=== PATIENT | female | born 1935 | race Caucasian/White ===

== ENCOUNTER 2016-11-05 08:30 | Inpatient (IN) | payer MEDICARE, BC, MEDICAID ==
[~2016-11-05] VITALS: Ht 170.2 cm; Wt 90.9 kg
[2016-11-05 09:37] LABS: APPEARANCE HAZY (CLEAR); BACTERIA FEW /hpf (NONE SEEN); BILIRUBIN NEGATIVE (NEGATIVE); COLOR YELLOW (YELLOW); GLUCOSE NEGATIVE (NEGATIVE); KETONE NEGATIVE (NEGATIVE); LEUKOCYTE ESTERASE 1+ (NEGATIVE); NITRITE NEGATIVE (NEGATIVE); PROTEIN NEGATIVE (NEGATIVE); RED CELLS - URINE 0-5 /hpf (0-5); SPECIFIC GRAVITY 1.015 (1.005-1.020); UROBILINOGEN NORMAL (NORMAL); YEAST RARE /hpf (NONE SEEN)
[2016-11-05 09:41] LABS: HEMATOCRIT 42.3 % (36.0-48.0); HEMOGLOBIN 13.2 g/dL (12-16); LYMPHOCYTES 12.6 % (15-50); MCHC 31.2 g/dL (31.0-37.0); MCV 86.7 fL (80.0-100.0); MEAN PLATELET VOLUME 8.7 fL (7.4-10.4); NEUTROPHILS 76.7 % (40-80); PLATELET COUNT 222 10x3/uL (130-400); RBC 4.88 10x6/uL (4.00-5.40); RDW 16.3 % (11.5-14.5); WBC 5.1 10x3/uL (4.8-10.8)
[2016-11-05 09:58] LABS: ALBUMIN 3.6 g/dL (3.4-5.0); ALKALINE PHOSPHATASE 72 U/L (46-116); ALT (SGPT) 17 U/L (10-68); CALC OSMOLALITY 277 mosm/kg (275-300); CALCIUM 8.7 mg/dL (8.5-10.1); CARBON DIOXIDE 29.1 mmol/L (21.0-32.0); CHLORIDE - SERUM 102 mmol/L (98-107); CREATININE - SERUM 0.9 mg/dL (0.6-1.3); GLUCOSE 118 mg/dL (74-106); PROTEIN - SERUM 7.8 g/dL (6.4-8.2); SODIUM 139 mmol/L (136-145); UREA NITROGEN 9 mg/dL (7-18); eGFR NON AFRICAN AMERICAN 64 mL/min (90-120)
[2016-11-05 10:10] LABS: CREATINE KINASE 61 UL (21-215); PRO BNP 338 pg/mL (0-450); TROPONIN-I < 0.017 ng/mL (0.000-0.060)
--- NOTE | 2016-11-05 15:14 | NUR ---
PATIENT TO ROOM AT THIS TIME. ASSISTED PATIENT TO BED X 2. PATIENT STOOD UP AND PIVOTED TO GET TO THE OTHER BED. NO SKIN BREAKDOWN NOTED. IV INTACT. FAMILY AT BEDSIDE. CALL LIGHT WITHIN REACH.
[2016-11-05] MEDS ORDERED: BAYER CHEWABLE81 MG PO (16:09)
[2016-11-05] MEDS ORDERED: SYNTHROID125 MCG PO (16:09)
[2016-11-05] MEDS ORDERED: VALIUM5 MG PO (16:11)
[2016-11-05] MEDS ORDERED: PERCOCET 10/3251 TA1 PO (16:13)
[2016-11-05] MEDS ORDERED: VENTOLIN HFA18 GM INH (16:14)
[2016-11-05] MEDS ORDERED: GOLD BOND MEDI TOPICAL (16:15)
[2016-11-05] MEDS ORDERED: MIRALAX17 GM PO (16:15)
[2016-11-05] MEDS ORDERED: BUSPAR10 MG PO (16:16)
[2016-11-05] MEDS ORDERED: CIPRO500 MG PO (16:18)
[2016-11-05] MEDS ORDERED: AUGMENTIN 875-11 TAB PO (16:21)
[2016-11-05 17:27] VITALS: BP 163/71
--- NOTE | 2016-11-05 19:40 | NUR ---
PATIENT RECIEVED PAIN PILL AT THIS TIME. IV INTACT. NO COMPLAINTS. ASSISTED TO STAND UP AT BEDSIDE AND BACK TO BED. CALL LIGHT WITHIN REACH.
[2016-11-05 19:44] VITALS: Ht 170.2 cm; Wt 90.9 kg
[2016-11-05 20:00] VITALS: BP 128/72
[2016-11-05] MEDS ORDERED: CLARITIN 10 MG10 MG PO (21:35)
[2016-11-06] VITALS: BP 141/73
--- NOTE | 2016-11-06 03:56 | NUR ---
ASSISTED PT UP BEDSIDE COMMODE. BALANCE PROBLEMS. PT C/O CHRONIC LEFT LEG PAIN. HAVE GIVEN MORPHINE TWICE TONIGHT. OXYGEN @ 2.5 LITERS. WILL CONTINUE TO MONITOR.
[2016-11-06 04:00] VITALS: BP 133/77
--- NOTE | 2016-11-06 05:00 | NUR ---
IV DISLODGED. RESITED 22 G TO RIGHT FOREARM. GAVE PT PERCOCET FOR PAIN LEFT LEG PAIN. PT SITTING UP IN BED EATING SANDWICH AND DRINKING COFFEE.
[2016-11-06 06:37] LABS: BASOPHILS 0 % (0-2); EOSINOPHILS 0 % (0-7); HEMATOCRIT 41.1 % (36.0-48.0); HEMOGLOBIN 12.3 g/dL (12-16); IMMATURE GRANULOCYTES 0.3 % (0-5); LYMPHOCYTES 13.2 % (15-50); MCH 26.5 pg (26.0-34.0); MCHC 29.9 g/dL (31.0-37.0); MCV 88.6 fL (80.0-100.0); MEAN PLATELET VOLUME 9.7 fL (7.4-10.4); MONOCYTES 3.3 % (2-11); NEUTROPHILS 83.2 % (40-80); PLATELET COUNT 220 10x3/uL (130-400); RBC 4.64 10x6/uL (4.00-5.40); RDW 16.6 % (11.5-14.5)
[2016-11-06 06:50] LABS: ANION GAP 13.9 mmol/L (8-16); CALCIUM 8.8 mg/dL (8.5-10.1); CARBON DIOXIDE 25.5 mmol/L (21.0-32.0); CREATININE - SERUM 0.8 mg/dL (0.6-1.3); POTASSIUM - SERUM 4.4 mmol/L (3.5-5.1)
--- NOTE | 2016-11-06 07:00 | NUR ---
REPORT RECIEVED, ASSUMED CARE OF PT. NO COMPLAINTS AT THIS TIME. RESTING IN BED. BED IN LOWEST POSITION, SIDE RAILS UP X 2, CALL LIGHT WITHIN REACH.
[2016-11-06 07:17] VITALS: BP 120/63
[2016-11-06 11:02] VITALS: BP 133/70
--- NOTE | 2016-11-06 14:26 | HP ---
PATIENT: HENRIQUE CLAY MEDICAL RECORD: [id number] ACCOUNT: [id number] LOCATION:D.[id number] : 35 ADMISSION DATE: 11/05/16 HISTORY AND PHYSICAL EXAMINATION Admission History and Physical DATE OF ADMISSION: 11/05/2016 CHIEF COMPLAINT: Shortness of breath for days. HISTORY OF PRESENT ILLNESS: This is an 81-year-old white female, who was recently moved to [place] in the last month or 2. She lives at [facility] and she was brought to the ER with increased shortness of breath over several days. Denies fever or chills. She has had a little cough. She has a past history of nonsmall cell lung cancer and recently completed treatment for that in [place]. She has a history of chronic obstructive pulmonary disease. Chest x-ray done in the ER showed prominence with left elevated hemidiaphragm and patchy airspace opacities. CT of the chest was then done showing emphysematous changes with scarring bilaterally. There was an elevated left hemidiaphragm, possible fibrosis, neoplasm could not be excluded. She is admitted for further treatment of COPD exacerbation at this point. PAST MEDICAL AND SURGICAL HISTORY: Again, nonsmall cell lung cancer, COPD, hypothyroidism, history of UTIs. PAST SURGICAL HISTORY: Abdominal aortic aneurysm repair, hysterectomy, bladder suspension. SOCIAL HISTORY: , retired from the [employer] business. HABITS: Former smoker, quit 2 years ago. No alcohol or drugs. HOME MEDICATIONS: Includes levothyroxine 125 mcg once a day, aspirin 81 mg once a day, Valium 5 mg p.o. b.i.d. p.r.n. anxiety, oxycodone 10/325 one every 4 hours as needed for pain, Ventolin HFA 2 inhalations every 4 hours as needed for wheeze. She takes one scoop of MiraLax at bedtime, ____ at bedside p.r.n. She takes BuSpar 10 mg t.i.d. FAMILY HISTORY: Father at 67 of an [place]. He had diabetes. Mother at 98 of kidney failure. ALLERGIES: SHE STATES PREDNISONE "MAKES ME CRAZY." REVIEW OF SYSTEMS: GENERAL: No major weight changes. HEENT: No particular sinus or allergy problems. RESPIRATORY: Has emphysema as a long time smoker. CARDIAC: No history of heart disease. GASTROINTESTINAL: No significant diarrhea or constipation. GENITOURINARY: She has had a bladder suspension. MUSCULOSKELETAL: She has pain in her legs and states she is unable to walk and has not been able to walk for months, mostly due to right leg pain. NEUROLOGIC: No migraine headaches. No seizures. PSYCHIATRIC: She has anxiety. HISTORY AND PHYSICAL [id number] HENRIQUE CLAY PHYSICAL EXAMINATION: VITAL SIGNS: Temperature 98.1, pulse 89, respirations 20, blood pressure 163/71, O2 sat 91% on 2-4 liters. HEENT: Grossly within normal limits. NECK: Supple. No JVD or bruit. HEART: Regular rate and rhythm. LUNGS: Distant breath sounds. No wheeze at this time. ABDOMEN: Soft, flat, nontender. EXTREMITIES: No edema. She does have pain in the right leg. LABORATORY DATA: CBC with a white count of 5100, hemoglobin 13.2, hematocrit 42.3. Basic metabolic panel is all normal. Liver functions are normal. Cardiac enzymes were negative. ProBNP 338. Urinalysis, trace blood, 10-25 epithelial cells, so is contaminated. IMAGING: Chest x-ray: Prominence of the left elevated hemidiaphragm and patchy airspace opacities. CT of the chest showed emphysematous changes, scarring bilaterally, elevated left hemidiaphragm, nonspecific changes. Questionable fibrosis, unable to rule out neoplasm. EKG normal sinus rhythm, heart rate 82. ASSESSMENT: Chronic obstructive pulmonary disease exacerbation. PLAN: She has updrafts ordered. She has methylprednisolone ordered and has tolerated that so far. We give her supplemental oxygen as she is requiring. We will continue her usual home medications except the Ventolin HFA. We will try Flonase nasal spray. IV Pepcid for stress ulcer prevention and Lovenox subQ for DVT prevention. Other tests and procedures as warranted. TRANSINT:[id number] Voice Confirmation ID: [id number] DOCUMENT ID: [id number] SHERLY TURNER MD at 1426 CC: [id number] DICTATION DATE: 11/05/162040 WIRE WINDER: 11/05/162223 [place] [address]
[2016-11-06 15:09] VITALS: BP 124/68
--- NOTE | 2016-11-06 18:47 | NUR ---
PT RESTING IN BED, NO COMPLAINTS AT THIS TIME. BED IN LOWEST POSITION, SIDE RAILS UP X 2, CALL LIGHT WITHIN REACH.
[2016-11-06 20:00] VITALS: BP 126/66
[2016-11-07] VITALS: BP 130/66
[2016-11-07 04:00] VITALS: BP 128/70
--- NOTE | 2016-11-07 07:00 | NUR ---
REPORT RECIEVED ASSUMED CARE. PATIENT IN BED WITH IV INTACT. NO COMPLAINTS. CALL LIGHT WITHIN REACH.
--- NOTE | 2016-11-07 09:15 | NUR ---
PATIENT UP TO BSC WITH ASSISTANCE. CALL LIGHT WITHIN REACH.
[2016-11-07 09:40] VITALS: BP 146/56
[2016-11-07 12:46] VITALS: BP 142/64
[2016-11-07 16:26] VITALS: BP 136/68
--- NOTE | 2016-11-07 16:45 | NUR ---
PATIENT IN BED WITH IV INTACT. NO COMPLAINTS AT THIS TIME. EYES CLOSED RESTING. CALL LIGHT WITHIN REACH.
[2016-11-07 20:00] VITALS: BP 141/71
--- NOTE | 2016-11-07 22:25 | NUR ---
STANDBY ASSISTANCE UP TO BSC. PT C/O LEFT LEG PAIN. PERCOCET AND MORPHINE FOR PAIN CONTROL. SOB ON EXERTION. OXYGEN @ 2.5/NC. WILL CONTINUE TO MONITOR.
[2016-11-08] VITALS: BP 154/80
[2016-11-08 04:00] VITALS: BP 128/75
[2016-11-08 08:09] VITALS: BP 149/74
--- NOTE | 2016-11-08 08:15 | NUR ---
ASSESSSMENT PER FLOW SHEET.PT WITHOUT DISTRESS.FAMILY AT BEDSIDE.FALL PREVENTION INITIATED WITH BED ALARM ON AND FUNCTIONING.YELLOW BAND AND DOOR MARKER IN PLACE.PT REFUSES NON SLIP SOCKS.CALL LIGHT IN REACH.FAMILY AT BEDSIDE.
--- NOTE | 2016-11-08 11:56 | NUR ---
WITHOUT NEEDS.FALL PREVENTION STILL IN PLACE. CALL LIGHT IN REACH
[2016-11-08 12:07] VITALS: BP 157/77
--- NOTE | 2016-11-08 15:40 | NUR ---
IV DCD WITH CATH INTACT.
[2016-11-08 16:06] VITALS: BP 142/76
--- NOTE | 2016-11-08 16:45 | NUR ---
SPOKE WITH THE PATIENT AND HER NIECE, HOLLIE GUERRERO, ABOUT DISCHARGE PLANS. PATIENT IS ADAMANT ABOUT RETURNING TO HOME. SHE IS DRESSED AND PACKED. SHE LIVES AT [facility] [address] SHE WILL REQUIRE AMBULANCE TRANSPORTATION TO HOME. SHE IS AGREEABLE TO HOME HEALTH. THEY ASK CM TO SPEAK WITH [facility] REGARDING WHO THEY UTILIZE. HOME HEALTH FOR NURSING AND PHYSICAL THERAPY. SHE HAS HOME OXYGEN THERAPY W/ [facility] PORTABLE AND STATIONARY. SHE HAS RAISED TOILET SEAT, WHEELCHAIR AND WALKER. DR Elicia ACHARYA IS THE MD FOR HER LUNG CANCER TREATMENT. DR TURNER WAS PRIMARY THIS ADMISSION. PHARMACY- MEDS ARE OBTAINED THRU [facility] W/ [facility] TRANSPORTATION- [facility] TC TO [facility] [phone]. SPOKE WITH CANDIS. ADVISED OF DISCHARGE. FAXED H/P AND 11/08 DISCHARGE NOTE TO [phone]. CANDIS STATED THEY USE [facility] FOR SERVICES. TC TO [facility] AND SPOKE WITH PANCHO. REFERRAL GIVEN. FAXED CLINICAL. AWAIT DISCHARGE ORDERS. PATIENTS NIECE AT THE BEDSIDE, HOLLIE GUERRERO- [phone]. SHE SIGNED THE PATIENT CHOICE FORM FOR H/H. SHE IS IN AGREEMENT W/ PLAN.
--- NOTE | 2016-11-08 16:46 | NUR ---
TC TO [facility]. SPOKE WITH WENDY. WILL CALL FOR TRANSPORTATION WHEN PATIENT IS READY. PCS FORM SIGNED. FACESHEET W/ PCS FORM. CALL TO [facility] WHEN PATIENT IS READY FOR D/C TO HOME [phone].
--- NOTE | 2016-11-08 18:04 | NUR ---
DISCHARGE INSTRUCTIONS,STATES UNDERSTANDING.
--- NOTE | 2016-11-08 18:08 | NUR ---
GEOVANNI TO [facility],SPOKE WITH BONY
--- NOTE | 2016-11-08 19:25 | NUR ---
PATIENT JUST LEFT WITH [facility]. REC'D REPORT FROM NATALIE NIEVES. REPORTED THAT SHE WAS LEAVING TO GO BACK TO [facility] VIA [facility]. [facility] CAME AND TRANSPORTED THE PATIENT @1926 BEFORE I HAD A CHANCE TO GO AND ASSESS HER, WAS STILL IN THE MIDDLE OF GETTING REPORT. GAVE PAPER WORK TO SALES ENABLEMENT CONSULTANT.
== END 2016-11-08 19:27 | disposition home health service (06) | DRG 192 ==
LOC: OBSVTIME → D.ER 08:30 → OBSVTIME 12:55 → D.MS 12:55
PROVIDERS: Emergency Medicine; ADMIT Family Medicine
DX: J44.1 Chronic obstructive pulmonary disease with (acute) exacerbation (principal); E03.9 Hypothyroidism, unspecified; Z85.118 Personal history of other malignant neoplasm of bronchus and lung; Z87.891 Personal history of nicotine dependence

== ENCOUNTER 2016-11-11 14:14 | Emergency (ER) | payer MEDICARE, BC, MEDICAID ==
[2016-11-05 19:44] VITALS: BMI 31.4
[~2016-11-11 14:14] MED LIST: AUGMENTIN 875-11 TAB PO; BAYER CHEWABLE81 MG PO; BUSPAR10 MG PO; CIPRO500 MG PO; CLARITIN 10 MG10 MG PO; GOLD BOND MEDI TOPICAL; MIRALAX17 GM PO; PERCOCET 10/3251 TA1 PO; SYNTHROID125 MCG PO; VALIUM5 MG PO; VENTOLIN HFA18 GM INH
== END 2016-11-11 16:36 | disposition home or self-care (01) ==
LOC: D.ER 14:14
DX: M79.604 Pain in right leg (principal); J44.9 Chronic obstructive pulmonary disease, unspecified; Z85.118 Personal history of other malignant neoplasm of bronchus and lung

== ENCOUNTER 2016-11-11 20:24 | Emergency (ER) | payer MEDICARE, BC, MEDICAID ==
[2016-11-05 19:44] VITALS: BMI 31.4
[2016-11-11 20:58] LABS: BASOPHILS 0.1 % (0-2); HEMATOCRIT 45.5 % (36.0-48.0); HEMOGLOBIN 14.1 g/dL (12-16); IMMATURE GRANULOCYTES 0.8 % (0-5); LYMPHOCYTES 6.7 % (15-50); MCH 27.2 pg (26.0-34.0); MCV 87.8 fL (80.0-100.0); MEAN PLATELET VOLUME 9.6 fL (7.4-10.4); NEUTROPHILS 82.4 % (40-80); PLATELET COUNT 245 10x3/uL (130-400); RBC 5.18 10x6/uL (4.00-5.40); RDW 16.6 % (11.5-14.5); WBC 10.3 10x3/uL (4.8-10.8)
[2016-11-11 21:31] LABS: ALBUMIN 3.3 g/dL (3.4-5.0); ANION GAP 10.7 mmol/L (8-16); BILIRUBIN - TOTAL 0.47 mg/dL (0.2-1.3); CALCIUM 8.5 mg/dL (8.5-10.1); CARBON DIOXIDE 28.2 mmol/L (21.0-32.0); CREATININE - SERUM 0.9 mg/dL (0.6-1.3); POTASSIUM - SERUM 3.9 mmol/L (3.5-5.1); PROTEIN - SERUM 6.9 g/dL (6.4-8.2)
[2016-11-11 21:51] LABS: CREATINE KINASE 45 UL (21-215); PRO BNP 274 pg/mL (0-450)
[2016-11-11 21:52] LABS: TROPONIN-I < 0.017 ng/mL (0.000-0.060)
== END 2016-11-12 00:10 | disposition home or self-care (01) ==
LOC: D.ER 20:24
PROVIDERS: Emergency Medicine
DX: R55 Syncope and collapse (principal); N39.0 Urinary tract infection, site not specified; S70.01XA Contusion of right hip, initial encounter; X58.XXXA Exposure to other specified factors, initial encounter; Y93.89 Activity, other specified; Y92.89 Other specified places as the place of occurrence of the external cause; R00.0 Tachycardia, unspecified; I49.3 Ventricular premature depolarization

== ENCOUNTER 2016-11-12 08:31 | Emergency (ER) | payer MEDICARE, BC, MEDICAID ==
[2016-11-05 19:44] VITALS: BMI 31.4
[2016-11-12 09:16] LABS: BASOPHILS 0.1 % (0-2); EOSINOPHILS 0.3 % (0-7); HEMOGLOBIN 14.1 g/dL (12-16); IMMATURE GRANULOCYTES 0.6 % (0-5); LYMPHOCYTES 4.8 % (15-50); MCH 27.3 pg (26.0-34.0); MCHC 31.3 g/dL (31.0-37.0); MCV 87.2 fL (80.0-100.0); MEAN PLATELET VOLUME 9.7 fL (7.4-10.4); MONOCYTES 8.7 % (2-11); NEUTROPHILS 85.5 % (40-80); PLATELET COUNT 224 10x3/uL (130-400); RBC 5.16 10x6/uL (4.00-5.40); RDW 16.7 % (11.5-14.5); WBC 11.6 10x3/uL (4.8-10.8)
[2016-11-12 09:31] LABS: ALBUMIN 3.2 g/dL (3.4-5.0); ANION GAP 11.1 mmol/L (8-16); BILIRUBIN - TOTAL 0.63 mg/dL (0.2-1.3); CALCIUM 8.3 mg/dL (8.5-10.1); CARBON DIOXIDE 28.1 mmol/L (21.0-32.0); CREATININE - SERUM 1.1 mg/dL (0.6-1.3); POTASSIUM - SERUM 4.2 mmol/L (3.5-5.1); PROTEIN - SERUM 7.2 g/dL (6.4-8.2)
[2016-11-12 09:55] LABS: INR 1.13 (0.85-1.17); PROTIME 14.3 SECONDS (11.6-15.0)
[2016-11-12 09:56] LABS: APTT 36.7 SECONDS (22.8-39.4)
[2016-11-12 12:04] LABS: APPEARANCE CLEAR (CLEAR); BACTERIA FEW /hpf (NONE SEEN); BILIRUBIN NEGATIVE (NEGATIVE); COLOR YELLOW (YELLOW); EPITHELIAL CELLS 0-5 /hpf (0-5); GLUCOSE NEGATIVE (NEGATIVE); KETONE NEGATIVE (NEGATIVE); LEUKOCYTE ESTERASE TRACE (NEGATIVE); MUCUS <1+ /lpf (NONE SEEN); NITRITE NEGATIVE (NEGATIVE); PROTEIN NEGATIVE (NEGATIVE); RED CELLS - URINE 0-5 /hpf (0-5); UROBILINOGEN NORMAL (NORMAL); WHITE CELLS - URINE 0-5 /hpf (0-5)
== END 2016-11-12 16:01 | disposition home or self-care (01) ==
LOC: D.ER 08:31
PROVIDERS: Emergency Medicine
DX: S00.83XA Contusion of other part of head, initial encounter (principal); W18.11XA Fall from or off toilet without subsequent striking against object, initial encounter; Y93.89 Activity, other specified; Y92.89 Other specified places as the place of occurrence of the external cause; S92.411A Displaced fracture of proximal phalanx of right great toe, initial encounter for closed fracture; Z85.118 Personal history of other malignant neoplasm of bronchus and lung

== ENCOUNTER 2017-02-04 05:58 | Inpatient (IN) | payer MEDICARE, BC, MEDICAID ==
[~2017-02-04] VITALS: Ht 170.2 cm; Wt 89.8 kg
[~2017-02-04 05:58] MED LIST changes: -SYNTHROID125 MCG PO; +SYNTHROID137 MCG PO
[2017-02-04 06:22] LABS: BASOPHILS 0.1 % (0-2); EOSINOPHILS 0 % (0-7); HEMATOCRIT 42.6 % (36.0-48.0); HEMOGLOBIN 13.5 g/dL (12-16); IMMATURE GRANULOCYTES 0.4 % (0-5); LYMPHOCYTES 6.6 % (15-50); MCH 28.3 pg (26.0-34.0); MCHC 31.7 g/dL (31.0-37.0); MCV 89.3 fL (80.0-100.0); MEAN PLATELET VOLUME 9.6 fL (7.4-10.4); NEUTROPHILS 84.9 % (40-80); PLATELET COUNT 191 10x3/uL (130-400); RBC 4.77 10x6/uL (4.00-5.40); RDW 14.7 % (11.5-14.5); WBC 12.9 10x3/uL (4.8-10.8)
--- NOTE | 2017-02-04 06:28 | NUR ---
82 YO FEMALE DIAPHORETIC. BILATERAL CLEAR DIMINISHED BS TO ALL ANTERIOR ASPECTS OF AUSCULATATION C/O DYSPNEA AND DIAPHORESIS AND ELEVATED TEMP ABG DRAWN WITH ABNORMAL PO2 OF 56.6 INCREASED 2 VIA NC TO 5L PER MIN SPO2 CURRENTLY 94 PT KATHIA TX WELL
[2017-02-04 06:50] LABS: ALBUMIN 3.1 g/dL (3.4-5.0); ANION GAP 16.2 mmol/L (8-16); BILIRUBIN - TOTAL 0.6 mg/dL (0.2-1.3); CALCIUM 8.8 mg/dL (8.5-10.1); CARBON DIOXIDE 25.7 mmol/L (21.0-32.0); MAGNESIUM - SERUM 1.6 mg/dL (1.8-2.4); POTASSIUM - SERUM 3.9 mmol/L (3.5-5.1); PROTEIN - SERUM 6.7 g/dL (6.4-8.2)
[2017-02-04 07:46] LABS: APPEARANCE CLOUDY (CLEAR); BILIRUBIN NEGATIVE (NEGATIVE); COLOR STRAW (YELLOW); GLUCOSE NEGATIVE (NEGATIVE); KETONE NEGATIVE (NEGATIVE); NITRITE POSITIVE (NEGATIVE); PROTEIN NEGATIVE (NEGATIVE); SPECIFIC GRAVITY 1.015 (1.005-1.020); UROBILINOGEN NORMAL (NORMAL)
[2017-02-04 07:47] LABS: BACTERIA MANY /hpf (NONE SEEN); EPITHELIAL CELLS 0-5 /hpf (0-5); MUCUS <1+ /lpf (NONE SEEN); RED CELLS - URINE 0-5 /hpf (0-5); WHITE CELLS - URINE >50 /hpf (0-5)
[2017-02-04 11:30] VITALS: BP 106/53; BMI 29.8
--- NOTE | 2017-02-04 11:53 | NUR ---
RECIEVED PATIENT LYING IN BED; COMPLAINTS OF BEING HOT AND THEN COLD; VERY UNCOMFORTABLE; ALERT/VERABL/ORIENTED; FALL RISK ASSESSED PREVENTIONS IN PLACE; BED IN LOWEST POSITION; CALL LIGHT IN REACH; ABRASIONS, RASHES NOTED IN PERINEAL AREA; WILL CONSULT WOUND CARE; NO DISTRESS NOTED AT THIS TIME; WILL CONTINUE TO MONITOR
--- NOTE | 2017-02-04 16:00 | NUR ---
REC'D ORDERS FROM [facility] FOR EXTRA STRENGTH TYLENOL Q6HP PAIN.
[2017-02-04 16:15] VITALS: BP 120/67
[2017-02-04 21:38] VITALS: BP 142/61
--- NOTE | 2017-02-05 00:24 | NUR ---
PT IN BED RESTING QUIETLY. BREATHING EVEN AND UNLABORED. WILL CPOC.
[2017-02-05 01:53] VITALS: BP 143/49
--- NOTE | 2017-02-05 02:33 | NUR ---
PT IN BED. CHANGED BRIEF AND PROVIDED DRINKING WATER PER REQUEST. PT DENIES FURTHER NEEDS AT THIS TIME.
[2017-02-05 04:59] VITALS: BP 105/68
[2017-02-05 06:13] LABS: BASOPHILS 0 % (0-2); EOSINOPHILS 0 % (0-7); HEMATOCRIT 39.5 % (36.0-48.0); HEMOGLOBIN 12.5 g/dL (12-16); LYMPHOCYTES 5.8 % (15-50); MCHC 31.6 g/dL (31.0-37.0); MCV 88.4 fL (80.0-100.0); MEAN PLATELET VOLUME 9.9 fL (7.4-10.4); MONOCYTES 2.2 % (2-11); PLATELET COUNT 162 10x3/uL (130-400); RBC 4.47 10x6/uL (4.00-5.40); RDW 14.8 % (11.5-14.5); WBC 8.1 10x3/uL (4.8-10.8)
[2017-02-05 06:22] LABS: CALC OSMOLALITY 279 mosm/kg (275-300); CALCIUM 8.9 mg/dL (8.5-10.1); CHLORIDE - SERUM 106 mmol/L (98-107); CREATININE - SERUM 0.7 mg/dL (0.6-1.3); GLUCOSE 143 mg/dL (74-106); POTASSIUM - SERUM 4.1 mmol/L (3.5-5.1); SODIUM 140 mmol/L (136-145); UREA NITROGEN 9 mg/dL (7-18); eGFR NON AFRICAN AMERICAN 85 mL/min (90-120)
--- NOTE | 2017-02-05 07:20 | NUR ---
RECEIVED REPORT. ASSUMED CARE OF PATIENT. CALL LIGHT WITHIN REACH. RESP EVEN AND UNLABORED. RESTING IN SUPINE POSITION. SNORING. PATIENT EASILY AROUSED. NO DISTRESS.
[2017-02-05 08:35] VITALS: BP 135/69
--- NOTE | 2017-02-05 09:45 | NUR ---
MORNING MEDICATIONS PASSED ALONG WITH PRN PAIN MEDICATION AND ANTI-ANXIETY MED. PT VOICED THANKS AND DENIES ANY FURTHER NEEDS AT THIS TIME. CL IN REACH, BED IN LOWEST, SIDE RAILS X2 AND BUILT IN BED ALARM ON.
[2017-02-05 11:14] VITALS: Ht 170.2 cm; Wt 89.8 kg
--- NOTE | 2017-02-05 12:06 | NUR ---
SCD'S ON BILATERAL LE
[2017-02-05 12:12] VITALS: BP 141/76
--- NOTE | 2017-02-05 12:30 | NUR ---
PATIENT REQUESTING MEDICATION FOR ANXIETY. INFORMED PATIENT THAT IT IS TOO EARLY, AND THAT THE EARLIEST SHE CAN HAVE HER ANXIETY MEDICATION IS 1515. PATIENT WAS QUESTIONING CHARGE NURSE WHEN SHE WAS MEDICATED AT 0938 WHEN SHE COULD HAVE ANOTHER DOSE. NO DISTRESS
--- NOTE | 2017-02-05 14:55 | NUR ---
CALLED TO PATIENT ROOM, PATIENT STATES THAT SCD'S ARE MAKING HER LEGS NUMB. SCDS CHECKED, NON CONSTRICTING TO LOWER EXTREMITIES, MORE THAN 2 FINGERS ABLE TO EASILY BE SLID UNDER SCDS ON BILATERAL CALFS. PATIENT VERY ANXIOUS AND STATES THAT SHE WANTS THEM OFF. SCD'S REMOVED PER PATIENT REQUEST AT THIS TIME.
--- NOTE | 2017-02-05 16:35 | NUR ---
MEDICATED FOR PAIN AND ANXIETY AT THIS TIME. NO DISTRESS.
[2017-02-05 16:36] VITALS: BP 123/64
--- NOTE | 2017-02-05 16:55 | NUR ---
AT BEDSIDE FOR ROUNDS. MD AWARE OF BLOOD TINGED SPUTUM AND STATES THIS IS NORMAL FOR DX OF PNEUMONIA. DARK YELLOW SPUTUM ALSO PRODUCED. RECEIVING ABX ORDERED. NO NEW ORDERS. CALL LIGHT WITHIN REACH.
--- NOTE | 2017-02-05 18:31 | NUR ---
RESTING WITH EYES CLOSED. RESP EVEN AND UNLABORED. NO DISTRESS. CALL LIGHT WITHIN REACH.
[2017-02-05 21:15] VITALS: BP 137/72
--- NOTE | 2017-02-05 23:47 | NUR ---
PT IN BED RESTING. WILL CONTINUE TO MONITOR.
--- NOTE | 2017-02-06 | NUR ---
PT RESTING WELL, NO CHANGES NOTED. ASSESSMENTS UNCHANGED. CALL LIGHT WITHIN REACH. WILL MONITOR.
[2017-02-06 00:50] VITALS: BP 155/81
--- NOTE | 2017-02-06 01:52 | NUR ---
PT IN BED RESTING AT THIS TIME
[2017-02-06 05:16] VITALS: BP 168/74
[2017-02-06 05:24] LABS: BASOPHILS 0 % (0-2); EOSINOPHILS 0 % (0-7); HEMATOCRIT 38.6 % (36.0-48.0); IMMATURE GRANULOCYTES 0.1 % (0-5); MCH 27.8 pg (26.0-34.0); MCHC 31.1 g/dL (31.0-37.0); MCV 89.6 fL (80.0-100.0); MEAN PLATELET VOLUME 10.2 fL (7.4-10.4); MONOCYTES 5.2 % (2-11); NEUTROPHILS 87.7 % (40-80); RBC 4.31 10x6/uL (4.00-5.40); WBC 7.8 10x3/uL (4.8-10.8)
[2017-02-06 05:31] LABS: PLATELET COUNT 211 10x3/uL (130-400)
[2017-02-06 05:36] LABS: CALC OSMOLALITY 279 mosm/kg (275-300); CALCIUM 8.6 mg/dL (8.5-10.1); CARBON DIOXIDE 22.8 mmol/L (21.0-32.0); CHLORIDE - SERUM 108 mmol/L (98-107); CREATININE - SERUM 0.6 mg/dL (0.6-1.3); GLUCOSE 135 mg/dL (74-106); POTASSIUM - SERUM 3.8 mmol/L (3.5-5.1); SODIUM 140 mmol/L (136-145); UREA NITROGEN 11 mg/dL (7-18); eGFR NON AFRICAN AMERICAN > 90 mL/min (90-120)
--- NOTE | 2017-02-06 07:15 | NUR ---
RECEIVED REPORT. ASSUMED CARE OF PATIENT. CALL LIGHT WITHIN REACH. RESTING WITH EYES CLOSED. PATIENT NOTED TO BE SNORING. EASILY AROUSED. NO DISTRESS.
[2017-02-06 08:50] VITALS: BP 138/75
--- NOTE | 2017-02-06 09:17 | NUR ---
MEDICATED FOR PAIN AT THIS TIME WITH TYLENOL. NO DISTRESS.
--- NOTE | 2017-02-06 10:09 | NUR ---
PATIENT WITH ATTENTION SEEKING BEHAVIOR. PATIENT TURNING MOVING CONSULTANT LIGHT EVERY FEW MINUTES. WHEN ENTERING ROOM PATIENT STATES SHE CANNOT REMEMBER WHAT SHE WANTED OR DOES NOT KNOW THAT SHE TURNED CALL LIGHT ON. PATIENT IS ALSO TURNING MOVING CONSULTANT LIGHT AND CALLING RIGHT OF WAY WORKER AND REPORTING THAT NOBODY IS ANSWERING HER CALL LIGHT. PATIENTS CALL LIGHT HAS BEEN ANSWERED NUMEROUS TIMES. PATIENT IS CONTINENT OF BOWEL AND BLADDER AND IS REFUSING TO USE THE BEDPAN. PATIENT STATES SHE WANTS TO USE THE DISPOSABLE BRIEFS. PATIENT IS RED AND EXCORIATED IN BILATERAL GROIN FROM BRIEFS. ENCOURAGED USE OF BEDPAN. PATIENT IS NOT RECEPTIVE TO EDUCATION PRESENTED BY THIS PROPERTIES SUPERVISOR. CALL LIGHT IS IN REACH.
--- NOTE | 2017-02-06 10:30 | NUR ---
PATIENT WITH CALL ON, ENTERED PATIENT ROOM AGAIN TO SEE WHAT THIS ASSOCIATE ENGINEER COULD ASSIST PATIENT WITH. PATIENT STATES PUT MY BLANKET ON ME NOW. THIS ASSOCIATE ENGINEER ASKED PATIENT TO PLEASE SPEAK KINDLY WE HAVE BEEN IN MULTIPLE TIMES THIS AM TO TRY AND ADJUST THE TEMPERATURE FOR PATIENT. PATIENT STATES SHE DOESN'T FEEL GOOD AND CAN'T GET COMFORTABLE. AGAIN THIS ASSOCIATE ENGINEER ASKS PATIENT TO SPEAK KINDLY WE ARE TRYING TO CARE FOR HER. BLANKET APPLIED AND PATIENT DOOR LEFT ALL THE WAY OPEN PER HER REQUEST. CALL LIGHT WITHIN REACH.
--- NOTE | 2017-02-06 11:53 | NUR ---
MEDICATED FOR PAIN AND ANXIETY AT THIS TIME. NO DISTRESS. CALL LIGHT WITHIN REACH.
[2017-02-06 12:20] VITALS: BP 154/77
--- NOTE | 2017-02-06 13:37 | NUR ---
ASSISTED PATIENT ONTO BEDPAN AT THIS TIME. NO DISTRESS. PATIENT ASKING FOR ANOTHER PAIN PILL. INFORMED PATIENT IT WAS TOO EARLY TO ADMINISTER PAIN MEDICATION AT THIS TIME. NO DISTRESS. CALL LIGHT WITHIN REACH.
--- NOTE | 2017-02-06 14:09 | NUR ---
QUESTIONED WHY PATIENT IS RECEIVING NS AT 200 ML. ORDER RECEIVED TO D/C FLUIDS. PATIENT IS EATING AND DRINKING WELL. NO DISTRESS.
--- NOTE | 2017-02-06 14:33 | NUR ---
RESTING WITH EYES CLOSED, PATIENT NOTED TO BE SNORING UPON ENTERING ROOM. CALL LIGHT WITH IN REACH. PATIENT EASILY AROUSED. PATIENT REQUESTING PAIN MEDICATION SOON SHE IS AROUSED AT THIS TIME. NO DISTRESS. TOLERATING IV MEDICATION WELL.
--- NOTE | 2017-02-06 16:19 | NUR ---
PATIENTS SISTER AGNES CALLED TO CHECK ON PATIENT.
[2017-02-06 16:39] VITALS: BP 152/81
--- NOTE | 2017-02-06 17:00 | NUR ---
PATIENT FLOOR SANDING MACHINE OPERATOR LIGHT. ASSISTED TO BEDSIDE COMMODE. PATIENT DID NOT HAVE ANY RESULTS WHILE ON BEDSIDE COMMODE. PATIENT ASSISTED BACK TO BED AND PATIENT URINATED IN HER BRIEF. INCONTINENT CARE PROVIDED. HYDRAULIC LIFT OPERATOR HERE TO SPEAK TO PATIENT SHE IS FLOOR SANDING MACHINE OPERATOR LIGHT AND DEMANDING CARES EVERY FEW MINUTES.
--- NOTE | 2017-02-06 18:00 | NUR ---
PATIENT DRY TALC RACKER LIGHT AGAIN. PATIENT REQUESTING INCONTINENT CARE. INCONTINENT CARES PROVIDED. NO DISTRESS.
--- NOTE | 2017-02-06 18:59 | NUR ---
PT STATING SHE IS WET, CHANGED PT NEW BREIF PUT ON. PT CLEAN AND DRY. BED LOW AND CALL LIGHT IN REACH. PT SEEMS TO BE ATTENTION SEEKING. NAME PLACED ON BOARD. PT C/O NEEDING TO BE PULLED UP, BEING COLD ALTHOUGH HEAT IS ON 80. NEEDING PAIN MEDS AND STATING SHE IS HAVING AN ANXIETY ATTACK WITHIN 10 MINS. WILL CONTINUE TO MONITOR PT
--- NOTE | 2017-02-06 19:30 | NUR ---
CHANGED PT BREIF AGAIN. PT CRYING OUT THAT SHE NEEDS HER MEDS FIRST AND THAT SHE IS IN BAD PAIN. ASSURED PT WHEN I PULL MEDICATIONS I WILL COME TO HER FIRST. PT DENIES ANY OTHER NEEDS. 4L OF O2 NC. BED LOW AND CALL LIGHT IN REACH WILL CPOC
[2017-02-06 20:00] VITALS: BP 142/71
--- NOTE | 2017-02-06 20:12 | NUR ---
PT INCONT AGAIN. MODERATE AMOUNT. BREIF CHANGED AND PUT CLEAN ON . PT C/O MEDS AGAIN. ASSURED PT I HAVE THEM AND I AM GIVING HER MEDS NOW. PT DENIES ANY OTHER NEEDS. NO S/S OF DISTRESS. WILL CPOC
--- NOTE | 2017-02-06 20:34 | NUR ---
PT HAS BEEN CALLING EVERY 5-15 MINS. EITHER WITH A WET BREIF OR TO COMPLIAN THAT HER PAIN MEDS ARE NOT WORKING. ASSURED PT THAT IT HAS ONLY BEEN APPOX 30 MINS SINCE HER MED WAS GIVEN. WILL SPEAK WITH CHARGE NURSE ABOUT CONTACTING A DOCTOR. PT HAS BREAKDOWN ON GROIN AND EXCORIATION IN VAGINAL AREA. PT MAY NEED BARRAZA FOR SKIN INTEGRITY. WILL CPOC
--- NOTE | 2017-02-06 21:20 | NUR ---
ORDER OBTAINED TO PLACE A BARRAZA IN PT. BARRAZA PLACED IN PT. CLEAR YELLOW URINE RETURN. APPROX 100ML OUTPUT AND PT ALSO WAS INCONT A MODERATE AMOUT. PT STILL C/O PAIN STATING IT IS NOT WORKING. TOLD PT SHE MAY NEED TO EAT AND OFFERED AN ICE PACK. PT REFUSED. WILL CPOC
[2017-02-07] VITALS: BP 178/97
--- NOTE | 2017-02-07 00:19 | NUR ---
PT ASLEEP. RESPIRATIONS EVEN AND UNLABORED. NO S/S OF DISTRESS. BED LOW AND CALL LIGHT INREACH. WILL CPOC
--- NOTE | 2017-02-07 03:38 | NUR ---
PT HAD HER PAIN MED AT 0200 PT NOW ASLEEP. RESPIRATIONS EVEN AND UNLABORED. BED LOW AND CALL LIGHT IN REACH. NO S/S OF DISTRESS. 4L OF O2 NC
[2017-02-07 04:00] VITALS: BP 177/85
--- NOTE | 2017-02-07 04:15 | NUR ---
PT C/O CHEST PAIN. SHE STATES SHE HAS FELT THIS PAIN BEFORE, "BACK WHEN SHE HAD CHEST COMPLICATIONS" RAN AN ECG STRIP WITH HER SUMMER ASSOCIATE AND PT WAS HAVING PAC'S. NORAMAL SINUS 78 WITH PAC'S. PT DENIES ANY OTHER PAIN. WILL INFORM CHARGE NURSE., WILL CPOC
--- NOTE | 2017-02-07 04:42 | NUR ---
EKG DONE AND PUT IN CHART. PT C/O NEEDING PAIN PILL. TOLD HER I GAVE HER ONE AT 0200 AND ONE IS NOT AVALIBLE UNTIL 0800. SHE ROLLED HER EYES AND SAID WELL MY HIP IS HURTING. PT HAS NO S/S OF DISTRESS. OFFERED AN ICE PACK PT REFUSED. PT DENIES ANY OTHER NEEDS. NO S/S OF DISTRESS. WILL CPOC
[2017-02-07 05:02] LABS: BASOPHILS 0 % (0-2); EOSINOPHILS 0 % (0-7); HEMATOCRIT 40.1 % (36.0-48.0); HEMOGLOBIN 12.6 g/dL (12-16); IMMATURE GRANULOCYTES 0.9 % (0-5); LYMPHOCYTES 8.8 % (15-50); MCH 27.8 pg (26.0-34.0); MCHC 31.4 g/dL (31.0-37.0); MCV 88.3 fL (80.0-100.0); MEAN PLATELET VOLUME 9.8 fL (7.4-10.4); MONOCYTES 5.2 % (2-11); NEUTROPHILS 85.1 % (40-80); PLATELET COUNT 189 10x3/uL (130-400); RBC 4.54 10x6/uL (4.00-5.40); RDW 14.8 % (11.5-14.5)
[2017-02-07 05:07] LABS: WBC 5.4 10x3/uL (4.8-10.8)
[2017-02-07 05:17] LABS: CALC OSMOLALITY 279 mosm/kg (275-300); CALCIUM 8.6 mg/dL (8.5-10.1); CARBON DIOXIDE 28.5 mmol/L (21.0-32.0); CHLORIDE - SERUM 102 mmol/L (98-107); CREATININE - SERUM 0.7 mg/dL (0.6-1.3); GLUCOSE 157 mg/dL (74-106); POTASSIUM - SERUM 3.7 mmol/L (3.5-5.1); SODIUM 139 mmol/L (136-145); UREA NITROGEN 10 mg/dL (7-18); eGFR NON AFRICAN AMERICAN 85 mL/min (90-120)
--- NOTE | 2017-02-07 06:10 | NUR ---
PT RESTING IN BED. C/O PAIN AND ASKS AGAIN WHEN SHE IS ABLE TO HAVE A PAIN PILL. REORIENTED PT THAT IS WILL BE AFTER 0800. PT CLOSES EYES BACK AND SAYS OK. PT DENIES ANY OTHER NEEDS. NO S/S OF DISTRESS. WILL CPOC
--- NOTE | 2017-02-07 07:15 | NUR ---
RECIEVED REPORT ON PATIENT, PATIENT IS SLEEPING AT THIS TIME, NAD NOTED. CHEST RISES AND FALLS EQUALLY. AROUSES TO VOICE. PATIENT HAS A L FA IV WITH NS AT 30ML/HR. PATIENT IS SR ON MONITOR WITH A RATE OF 69. PATIENT DENIES ANY NEEDS OR COMPLAINTS AT THIS TIME. WILL CONT TO MONITOR PATIENT. CPOC
[2017-02-07 08:27] VITALS: BP 187/89
--- NOTE | 2017-02-07 09:30 | NUR ---
MORNING MEDICATIONS GIVEN, NO ISSUES. CPOC
--- NOTE | 2017-02-07 11:33 | NUR ---
PATIENT KEEPS CALLING ME TO ROOM, ASKING WHEN SHE IS HAVING HER TEST. SPOKE WITH CT AND THEY STATED IT WOULD BE AROUND LUNCH TIME. WILL INFORM PATIENT. CPOC
[2017-02-07 11:57] VITALS: BP 166/92
--- NOTE | 2017-02-07 13:15 | NUR ---
PATIENT GONE TO CT. CPOC
--- NOTE | 2017-02-07 13:46 | NUR ---
PATIENT BACK FROM CT. PATIENT GIVEN WATER TO DRINK PER REQUEST. CPOC
--- NOTE | 2017-02-07 14:38 | NUR ---
PATIENT WAS ADMITTED FROM [facility]. TC TO [facility] AND SPOKE WITH LOTUS. THE PATIENT IS IN A SENIOR LIVING BED. SHE WAS ADMITTED 11/12/2016. LOTUS STATES SHE SPOKE WITH THE NIECE , SONDRA GUERRERO, THIS AM. THE PLAN IS FOR RETURN TO FACILITY AT DISCHARGE. CM MET WITH THE PATIENT IN THE ROOM THIS PM. SHE PLANS TO RETURN TO [facility]. NO VISITORS WERE PRESENT IN HER ROOM AT THAT TIME. PCP- DR CARMEL VOSS APN- [facility]- FACILITY PROVIDER DME- PATIENT AMBULTES W/ ASSISTIVE DEVICE PER [facility] REPORT. SHE IS ON NASAL O2 AT 3/L. SHE IS PRESENTLY ON 4.5L VIA NASAL CANNULA. CONTACT- SONDRA GUERRERO- RACHEL- [phone]. TC X2 TO NIECE. RECEIVED BUSY SIGNAL X2. CODE STATUS- FULL CODE CM TO FOLLOW TO ASSIST APPROPRIATE.
--- NOTE | 2017-02-07 15:15 | NUR ---
DR RODNEY AT BEDSIDE. NEEDS MET, DENIES ANY FURTHER NEEDS. CPOC
--- NOTE | 2017-02-07 17:12 | NUR ---
PATIENT SITTING UP IN BED EATING DINNER. DENIES ANY NEEDS. CPOC
--- NOTE | 2017-02-07 18:43 | NUR ---
PATIENT INFORMED I WAS LEAVING, TIME FOR SWITCHING SHIFTS. PATIENT NEEDS MET. DENIES ANY OTHER NEEDS. CPOC
--- NOTE | 2017-02-07 19:45 | NUR ---
ROUNDING NOTE: PT IS ALERT AND ORIENTED X3. UPON ENTERING ROOM, PT'S CALL LIGHT IS ON AND SHE IS VERY ANXIOUS ABOUT WHEN SHE CAN RECEIVE HER NEXT PAIN MEDICINE. I EXPLAINED THAT HER LAST PAIN MED (NORCO 10MG) AND HER LAST ANXIETY MED (ATIVAN 1MG) WAS GIVEN AT QUARTER TO 5PM, SO SHE WOULD NOT BE ABLE TO GET THOSE MEDS AGAIN UNTIL QUARTER TO 11PM BECAUSE THEY ARE DUE EVERY 6 HOURS. TRIED TO REPOSITION PATIENT AND GAVE HER EXTRA BLANKETS AND PILLOWS FOR COMFORT WITHOUT MUCH SUCCESS. PT STILL NOT COMFORTABLE AND HER ANXIETY STILL VERY HIGH. WILL CONT TO MONITOR.
[2017-02-07 20:33] VITALS: BP 131/81
[2017-02-08 03:47] VITALS: BP 132/86
[2017-02-08 04:36] LABS: BASOPHILS 0 % (0-2); EOSINOPHILS 0 % (0-7); HEMATOCRIT 43.5 % (36.0-48.0); HEMOGLOBIN 13.9 g/dL (12-16); LYMPHOCYTES 13.8 % (15-50); MCH 28.1 pg (26.0-34.0); MCV 87.9 fL (80.0-100.0); MONOCYTES 8.4 % (2-11); NEUTROPHILS 75.8 % (40-80); PLATELET COUNT 219 10x3/uL (130-400); RBC 4.95 10x6/uL (4.00-5.40); RDW 14.6 % (11.5-14.5); WBC 4.1 10x3/uL (4.8-10.8)
--- NOTE | 2017-02-08 04:40 | NUR ---
PT CONTINUED TO USE THE CALL JACK EVERY 10-15 MINUTES THROUGHOUT THE NIGHT TO REQUEST PAIN MEDS DESPITE BEING TOLD THAT SHE CAN ONLY RECEIVE MEDS ONLY EVERY 24 HOURS. HOWEVER, EVERY TIME THAT YOU RANDOMLY WALK IN THE ROOM, THE PT IS SLEEPING SOUNDLY. WILL CONT TO MONITOR.
[2017-02-08 04:55] LABS: CALC OSMOLALITY 278 mosm/kg (275-300); CALCIUM 8.8 mg/dL (8.5-10.1); CARBON DIOXIDE 28.5 mmol/L (21.0-32.0); CHLORIDE - SERUM 101 mmol/L (98-107); CREATININE - SERUM 0.7 mg/dL (0.6-1.3); GLUCOSE 154 mg/dL (74-106); POTASSIUM - SERUM 3.5 mmol/L (3.5-5.1); SODIUM 138 mmol/L (136-145); UREA NITROGEN 13 mg/dL (7-18); eGFR NON AFRICAN AMERICAN 85 mL/min (90-120)
--- NOTE | 2017-02-08 07:15 | NUR ---
RECIEVED REPORT ON PATIENT, PATIENT IS SLEEPING AT THIS TIME, NAD NOTED. CHEST RISES AND FALLS EQUALLY. PATIENT IS SR ON MONITOR WITH A RATE OF 80. PATIENT HAS A L FA IV WITH NS INFUSING AT 30ML/HR. BED IS LOW AND LOCKED. CALLL LIGHT IN REACH. WILL CONT TO MONITOR PATIENT. CPOC
[2017-02-08 08:00] VITALS: BP 151/82
--- NOTE | 2017-02-08 09:30 | NUR ---
MORNING MEDICATIONS GIVEN. NEEDS MET. CPOC
--- NOTE | 2017-02-08 10:30 | NUR ---
PATIENT SITTING UP IN CHAIR. WANTING PAIN MEDICATION. WILL GIVE WHEN DUE. CPOC
--- NOTE | 2017-02-08 11:15 | NUR ---
NORCO GIVBEN FOR PAIN, AND ATIVAN GIVEN FOR ANXIETY. PATIENT HAS BEEN ANXIOUS TODAY, CONSTANTLY ON THE CALL LIGHT, JUST WANTING SOMEONE IN HER ROOM TO TALK WITH. WILL CONT TO MONITOR PATIENT. CPOC
[2017-02-08 12:00] VITALS: BP 138/87
--- NOTE | 2017-02-08 13:30 | NUR ---
PATIENT BACK TO BED PER PT, PATIENT WANTING TO REST, WILL LET PATIENT REST. CPOC
--- NOTE | 2017-02-08 15:43 | NUR ---
PATIENT RESTING, AROUSES TO VOICE, DENIES ANY NEEDS. CPOC
[2017-02-08 16:00] VITALS: BP 145/79
--- NOTE | 2017-02-08 17:52 | NUR ---
PATIENT GIVEN NORCO FOR PAIN, AND ATIVAN FOR ANXIETY. KPAD APPLIED TO NECK FOR PAIN. DENIES ANY OTHER NEEDS. CPOC
--- NOTE | 2017-02-08 18:48 | NUR ---
PATIENT INFORMED I WAS LEAVING, TIME FOR SWITCHING SHIFTS. PATIENT NEEDS MET. DENIES ANY OTHER NEEDS. CPOC
[2017-02-08 21:38] VITALS: BP 186/96
[2017-02-09 00:37] VITALS: BP 153/75
[2017-02-09 04:53] VITALS: BP 176/87
[2017-02-09 05:18] LABS: BASOPHILS 0.2 % (0-2); EOSINOPHILS 0 % (0-7); HEMATOCRIT 43.5 % (36.0-48.0); HEMOGLOBIN 13.9 g/dL (12-16); LYMPHOCYTES 10.9 % (15-50); MCV 87.7 fL (80.0-100.0); MEAN PLATELET VOLUME 9.8 fL (7.4-10.4); MONOCYTES 10.2 % (2-11); NEUTROPHILS 76.7 % (40-80); PLATELET COUNT 240 10x3/uL (130-400); RBC 4.96 10x6/uL (4.00-5.40); RDW 14.8 % (11.5-14.5)
[2017-02-09 05:21] LABS: WBC 5.9 10x3/uL (4.8-10.8)
[2017-02-09 05:34] LABS: CALC OSMOLALITY 275 mosm/kg (275-300); CALCIUM 8.2 mg/dL (8.5-10.1); CARBON DIOXIDE 26.5 mmol/L (21.0-32.0); CHLORIDE - SERUM 101 mmol/L (98-107); CREATININE - SERUM 0.7 mg/dL (0.6-1.3); GLUCOSE 126 mg/dL (74-106); POTASSIUM - SERUM 3.6 mmol/L (3.5-5.1); SODIUM 136 mmol/L (136-145); eGFR NON AFRICAN AMERICAN 85 mL/min (90-120)
[2017-02-09 05:38] LABS: UREA NITROGEN 17 mg/dL (7-18)
--- NOTE | 2017-02-09 07:15 | NUR ---
RECIEVED REPORT ON PATIENT, PATIENT IS ALERT AND ORIENTED AT THIS TIME, CAPACITOR INSPECTOR AT BEDSIDE CHECKING VITAL SIGNS. PATIENT O2 SAT 78%, PATIENT HAD TAKEN OXYGEN OFF. PATINE TNC PUT BACK ON, PATIENT SAT UP AND ENCOURAGED TO COUGH. RESPIRATORY AT BEDSIDE INCREASED O2 TO 4L/MIN, PATIENT O2 SAT 96%. WILL CONT TO MONITOR. PATIENT HAS A L FA IV WITH NS AT 30ML/HR. DENIES ANY FURTHER NEEDS. CPOC
[2017-02-09 08:17] VITALS: BP 153/83
--- NOTE | 2017-02-09 09:12 | NUR ---
COMPLAINED OF RIGHT "FEMUR" PAIN UNABLE TO DESCRIBE BUT SAYS ITS CONSTANT AND LIKE WHEN SHE BROKE LEG BEFORE. PAIN LEVEL 9/10 OCCASSIONAL MOANING NOTED USING WARM PACK ON LEG. TYLENOL 500 MG GIVEN PO TO PROMOTE RELIEF. SAYS SHE HAS HISTORY OF CHRONIC PAIN. REPOSITIONED FOR COMFORT HOB 30 ASSISTED WITH BREAKFEAST TRAY. BED LOW. SIDE RAILS X2 CALL LIGHT IN REACH. SIERRA RAYMUNDO, NPC ADNS.
--- NOTE | 2017-02-09 09:37 | NUR ---
Patient Name: JOAQUÍN CLAY Admission Status: ER Accout number: [id number] Admission Date: 02-04-2017 : 1935 Admission Diagnosis:SHORTNESS OF BREATH Attending: TIMOTHY SCHWARTZ Current LOS: 5 Anticipated DC Date: Planned Disposition: [facility] Primary Insurance: MEDICARE A & B PLANNED EXTERNAL PROVIDER: [facility], [facility] MEDICAID BED Discharge Planning Comments: CM FAXED HOSPITAL UPDATE TO [facility], . FOR DISCHARGE, NURSE REPORT TO BE CALLED TO [facility], , [facility] IN[facility], . [facility]ATION. [employer] Drum Operator: Joaquín Fishman
--- NOTE | 2017-02-09 09:40 | NUR ---
MORNING MEDICATIONS GIVEN. NO ISSUES. [facility]
[2017-02-09 11:22] VITALS: BP 151/85
--- NOTE | 2017-02-09 11:30 | NUR ---
NORCO AND ATIVAN GIVEN. DENIES ANY OTHER NEEDS. [facility]
--- NOTE | 2017-02-09 11:38 | CN ---
PATIENT NAME:HENRIQUE CLAY MEDICAL RECORD: [id number] : 35 LOCATION:D. D.2108 ADMIT DATE: 02/04/17 ACCOUNT: [id number] CONSULTING PHYSICIAN: RENEE MARIE MD REFERRING PHYSICIAN: HORACIO BECERRIL MD DATE OF CONSULTATION: 02/04/2017 CONSULT REQUESTING PHYSICIAN: Horacio Becerril MD REASON FOR CONSULTATION: Pneumonia, acute exacerbation of COPD. HISTORY OF PRESENT ILLNESS: Ms. Clay is an 82-year-old female who is senior care resident with history of COPD. According to the patient, she is sick for the last one week. She has chills. She has fever. The patient was brought into the ER, who found out she has bilateral pneumonia as well as the patient has significant leukocytosis. She is a bit confused. Denies any chest pain. There is no associated nausea and vomiting. There is no diarrhea. REVIEW OF THE SYSTEMS: As in history of present illness. PAST MEDICAL HISTORY: 1. COPD. 2. Hypothyroidism. 3. Anxiety. 4. Questionable CA of the lung. PAST SURGICAL HISTORY: She had hip surgery. ALLERGIES: There is no known drug allergy. PRESENT MEDICATIONS: [employer] is reviewed. PERSONAL AND SOCIAL HISTORY: The patient is an ex-smoker. She is nondrinker. FAMILY HISTORY: Noncontributory. PHYSICAL EXAMINATION: GENERAL: Now, the patient is lying comfortably in bed. She is not in acute distress. VITAL SIGNS: The blood pressure is 106/53, pulse is 83, respirations 20, temperature 98.2, and SpO2 is 89% on 4 liters nasal cannula. HEENT: Conjunctivae are pink. Sclerae nonicteric. NECK: Supple. No JVD. CHEST: There are bilateral crackles and wheeze on forceful expiration. HEART: Rhythm regular. Normal sound. No murmur. ABDOMEN: Soft. Bowel sounds present. No hepatosplenomegaly. RECTAL: Deferred. EXTREMITIES: No cyanosis, no clubbing, and no pedal edema. SKIN: Warm and normal turgor. CENTRAL NERVOUS SYSTEM: There is no obvious cranial nerve abnormality. The gait was not tested. The patient is a bit confused. LABORATORY DATA: CBC; WBC 12.9, hemoglobin 13.5, hematocrit 42.6, and platelet count is 191. Chemistry; sodium 136, potassium is 3.9, BUN is 12, creatinine is 1, and bicarb 25.7. The lactic acid level is 3.3. Magnesium is 1.6 and albumin CONSULT REPORT [id number] HENRIQUE CLAY is 3.1. ABG; pH is 7.43, pCO2 is 35.4, pO2 is 57, and bicarb 23.6. IMPRESSION: 1. Bilateral pneumonia, most likely healthcare-associated pneumonia. The patient is a senior care resident. 2. Bgfrk-py-zrartjp hypoxic respiratory failure. 3. Acute exacerbation of COPD. 4. Leukocytosis. 5. Lactic acidosis without significant metabolic acidosis, possibly secondary to sepsis. RECOMMENDATION: Continue Rocephin. I will change Zithromax to Levaquin IV. Start methylprednisolone IV, albuterol/ipratropium nebulizer, Brovana, and budesonide nebulizer. Followup labs and chest radiograph in the morning. Followup on the blood cultures. Dr. Becerril, thank you for involving me in the care of Ms. Clay. TRANSINT:[id number] Voice Confirmation ID: [id number] DOCUMENT ID: [id number] RENEE MARIE MD at 1138 CC: HORACIO BECERRIL MD [id number] DICTATION DATE: 02/04/17 155 SOCCER PLAYER: 02/04/171927 ADM IN [place] [id number] [place] [address]
--- NOTE | 2017-02-09 13:31 | NUR ---
SLEEPING AT PRESENT.
[2017-02-09] MEDS ORDERED: LEVAQUIN750 MG PO (14:12)
[2017-02-09] MEDS ORDERED: OMNICEF300 MG PO (14:12)
[2017-02-09] MEDS ORDERED: FLORAJEN3 CAPS460 MG PO (14:13)
[2017-02-09] MEDS ORDERED: XOPENEX 0.0.63 MG/3 INH (14:15)
[2017-02-09] MEDS ORDERED: BROVANA15 MCG/2 M INH (14:15)
[2017-02-09] MEDS ORDERED: PREDNISONE10 MG PO (14:15)
--- NOTE | 2017-02-09 15:43 | NUR ---
ORDER FOR DISCHARGE. ORDER FOR BARRAZA TO BE DC. 10CC OF WATER REMOVED AND TIP INTACT. 1350 OF YELLOW URINE EMPTIED FROM BARRAZA. IV DC WITH TIP INTACT. ALSO MONITOR REMOVED.
--- NOTE | 2017-02-09 15:53 | NUR ---
REPORT CALLED TO [facility]. NURSE WAS Belle SALOMON LPN.
--- NOTE | 2017-02-09 15:54 | NUR ---
Patient Name: JOAQUÍN CLAY Encounter No: [id number] : 1935 Primary Insurance: MEDICARE A & B Anticipated DC Date: 02-09-2017 Planned Disposition: [facility] Fac MCR External Planned Provider: [facility], [facility] MEDICA[facility] BED DCP follow-up note: CM RECEIVED DISCHARGE ORDER, SPOKE TO PT IN ROOM WHO IS IN AGREEMENT WITH DISCHARGE TODAY TO RETURN TO [facility]. PT CALLED SOMEONE VIA HER PERSONAL CELL PHONE TO NOTIFY OF DISCHARGE HOME TODAY. IMPORTANT MESSAGE FROM MEDICARE PROVIDED AND EXPLAINED. CM CALLED LOTUS AT [facility], , WHO REPORTS THEY WILL ACCEPT PT BACK TO [facility] TODAY. CM FAXED DISCHARGE INFORMATION TO [facility], . FOR DISCHARGE, NURSE REPORT TO BE CALLED TO [facility], , . [facility] TO ARRANGE VAN TRANSPORTATION. Hot End Operator: Joaquín Fishman
[2017-02-09 16:04] VITALS: BP 162/88
--- NOTE | 2017-02-09 17:49 | NUR ---
VAN HERE FOR DISCHARGE. TO [place] VIA .
[2017-02-10] MEDS ORDERED: LEVAQUIN750 MG PO (15:40)
[2017-02-10] MEDS ORDERED: OMNICEF300 MG PO (15:40)
--- NOTE | 2017-02-10 15:45 | NUR ---
REQUEST BY DIAZ WITH DR. RODNEY TO ADD ADDITIONAL COVERAGE FOR ANTIBIOTICS THAT WERE SENT TO [facility]. SPOKE WITH MEMO AT [facility] VIA PHONE TO EXPLAIN NEED FOR ADDITIONAL ANTIBIOTIC COVERAGE AND TO GIVE ORDER. PRESCRIPTIONS WERE FAXED TO [phone] TO [facility] PER MEMO.
== END 2017-02-09 17:49 | DRG 871 ==
LOC: D.ER 05:58 → D.M2 08:16
PROVIDERS: Emergency Medicine; Family Medicine; ADMIT Family Medicine Adult Medicine
DX: A41.9 Sepsis, unspecified organism (principal); J18.9 Pneumonia, unspecified organism; J96.21 Acute and chronic respiratory failure with hypoxia; J44.0 Chronic obstructive pulmonary disease with (acute) lower respiratory infection; J44.1 Chronic obstructive pulmonary disease with (acute) exacerbation; E03.9 Hypothyroidism, unspecified; F41.9 Anxiety disorder, unspecified; Z87.891 Personal history of nicotine dependence

== ENCOUNTER 2017-04-19 03:18 | Inpatient (IN) | payer MEDICARE, BC ==
[~2017-04-19] VITALS: Ht 170.2 cm; Wt 82.6 kg
--- NOTE | ~2017-04-19 | CN ---
PATIENT NAME:HENRIQUE CLAY MEDICAL RECORD: [id number] : 35 LOCATION:D. D.2116 ADMIT DATE: 04/19/17 ACCOUNT: [id number] CONSULTING PHYSICIAN: RENEE MARIE MD REFERRING PHYSICIAN: KEKE FARR MD DATE OF CONSULTATION: 04/19/2017 CONSULT REQUESTING PHYSICIAN: Keke Farr MD REASON FOR CONSULTATION: Pulmonary embolism, pneumonia, acute exacerbation of COPD. HISTORY OF PRESENT ILLNESS: Ms. Clay is an 82-year-old female, who has a history of COPD, chronic hypoxic respiratory failure. According to the patient, she developed acute shortness of breath and brought into the ER. On evaluation, she was found that she has infiltrate as well as pulmonary embolism. She does have some fever. On arrival to the ER, her pulse ox was in the 80s. REVIEW OF SYSTEMS: Mainly in the history of present illness. PAST MEDICAL HISTORY: 1. COPD. 2. Chronic hypoxic respiratory failure. 3. Hypothyroidism. 4. Anxiety. 5. Questionable history of CA of the lung. PAST SURGICAL HISTORY: She has a hip surgery. ALLERGIES: There are no known drug allergies. PRESENT MEDICATIONS: [employer] was reviewed. PERSONAL AND SOCIAL HISTORY: The patient is an ex-smoker. She is a nondrinker. FAMILY HISTORY: Noncontributory. PHYSICAL EXAMINATION: GENERAL: Now, the patient is lying comfortable in bed. She is not in acute distress. VITAL SIGNS: The pulse ox is 96% on 2 liters. HEENT: Conjunctivae pink, sclerae nonicteric. NECK: Supple, no JVD. CHEST: Excursion is minimal on both sides and wheezes on forceful expiration. HEART: Rhythm regular, normal sound, no murmur. ABDOMEN: Soft, bowel sounds present. No hepatosplenomegaly. RECTAL: Deferred. EXTREMITIES: No cyanosis, no clubbing. There is 1+ pedal edema of the left lower extremity. LABORATORY DATA: ABG: The pH is 7.43, pCO2 38.6, the pO2 is 67, bicarbonate is 26. Chemistry: Sodium 138, potassium 4.2, chloride 100, bicarbonate is 29.4, BUN is 11, creatinine 0.8. CBC: WBC 7.6, hemoglobin 11.6, hematocrit is 37.7, and the platelet 214. D-dimer was 3.70. CONSULT REPORT [id number] HENRIQUE CLAY IMAGING: CTA of the chest: There is pulmonary embolism in the left lower lobe segment. There is a small left pleural effusion. There are emphysematous and fibrotic changes in the lungs. IMPRESSION: 1. Zghtc-hk-lncnwcc hypoxic respiratory failure. 2. Acute exacerbation of chronic obstructive pulmonary disease. 3. Pneumonia, left lower lobe, most likely hospital-acquired pneumonia with recent hospitalization and [facility] resident. 4. Pulmonary embolism. 5. Left pleural effusion. RECOMMENDATION: 1. Continue Lovenox, start methylprednisolone IV, Zosyn and vancomycin IV. Check ultrasound of the lower extremities. 2. Supplemental oxygen. 3. Brovana, budesonide nebulizer, Xopenex and ipratropium nebulizer. 4. Follow up labs and chest radiograph. Lovenox subq. Dr. Farr, thank you for involving me in the care of Ms. Clay. TRANSINT:[id number] Voice Confirmation ID: [id number] DOCUMENT ID: [id number] RENEE MARIE MD CC: KEKE FARR MD [id number] DICTATION DATE: 04/19/171828 SPOKE MAKER: 04/20/17 0051 ADM IN [facility] [address] [place] [address]
[~2017-04-19 03:18] MED LIST changes: +BROVANA15 MCG/2 M INH; +FLORAJEN3 CAPS460 MG PO; +LEVAQUIN750 MG PO; +OMNICEF300 MG PO; +PREDNISONE10 MG PO; +XOPENEX 0.0.63 MG/3 INH
[2017-04-19 04:10] LABS: APTT 35.4 SECONDS (22.8-39.4); INR 1.17 (0.85-1.17); PROTIME 14.5 SECONDS (11.6-15.0)
[2017-04-19 04:11] LABS: D-DIMER-QUANTITATIVE 3.7 ug/mLFEU (0.20-0.54)
[2017-04-19 04:23] LABS: CKMB 0.4 U/L (0.0-3.6); CREATINE KINASE 18 UL (21-215); MAGNESIUM - SERUM 1.9 mg/dL (1.8-2.4); PRO BNP 311 pg/mL (0-450); TROPONIN-I < 0.017 ng/mL (0.000-0.060)
[2017-04-19 04:27] LABS: BASOPHILS 0.3 % (0-2); EOSINOPHILS 0.7 % (0-7); HEMATOCRIT 36.7 % (36.0-48.0); HEMOGLOBIN 11.6 g/dL (12-16); IMMATURE GRANULOCYTES 0.1 % (0-5); LYMPHOCYTES 7.9 % (15-50); MCH 27.2 pg (26.0-34.0); MCHC 31.6 g/dL (31.0-37.0); MCV 86.2 fL (80.0-100.0); MEAN PLATELET VOLUME 10.1 fL (7.4-10.4); MONOCYTES 10.6 % (2-11); NEUTROPHILS 80.4 % (40-80); PLATELET COUNT 214 10x3/uL (130-400); RBC 4.26 10x6/uL (4.00-5.40); RDW 14.7 % (11.5-14.5); WBC 7.6 10x3/uL (4.8-10.8)
[2017-04-19 04:34] LABS: ALBUMIN 2.8 g/dL (3.4-5.0); ANION GAP 12.8 mmol/L (8-16); BILIRUBIN - TOTAL 0.41 mg/dL (0.2-1.3); CALCIUM 8.4 mg/dL (8.5-10.1); CARBON DIOXIDE 29.4 mmol/L (21.0-32.0); CREATININE - SERUM 0.8 mg/dL (0.6-1.3); POTASSIUM - SERUM 4.2 mmol/L (3.5-5.1); PROTEIN - SERUM 6.6 g/dL (6.4-8.2)
[2017-04-19 20:00] VITALS: BP 132/65
[2017-04-20] VITALS (7 sets, daily range): BP systolic 126–150; BP diastolic 64–77; Ht 170.2 cm; Wt 82.6 kg
[2017-04-20] MEDS ORDERED: NEURONTIN 400400 MG PO (00:23)
[2017-04-20] MEDS ORDERED: CELEXA20 MG PO (00:24)
[2017-04-20] MEDS ORDERED: SENNA LAXATIVE8.6 MG PO (00:25)
[2017-04-20] MEDS ORDERED: VENTOLIN HFA18 GM INH (00:27)
[2017-04-20] MEDS ORDERED: PERCOCET 10/3251 TA1 PO (00:28)
[2017-04-20] MEDS ORDERED: XANAX0.25 MG PO (00:28)
[2017-04-20 05:44] LABS: BASOPHILS 0.4 % (0-2); EOSINOPHILS 2.2 % (0-7); HEMATOCRIT 35.2 % (36.0-48.0); IMMATURE GRANULOCYTES 0.2 % (0-5); MCH 26.9 pg (26.0-34.0); MCHC 31.3 g/dL (31.0-37.0); MCV 86.1 fL (80.0-100.0); MEAN PLATELET VOLUME 9.7 fL (7.4-10.4); NEUTROPHILS 67.2 % (40-80); PLATELET COUNT 207 10x3/uL (130-400); RBC 4.09 10x6/uL (4.00-5.40); RDW 14.7 % (11.5-14.5)
[2017-04-20 05:52] LABS: WBC 4.9 10x3/uL (4.8-10.8)
[2017-04-20 06:10] LABS: ALBUMIN 2.5 g/dL (3.4-5.0); ALKALINE PHOSPHATASE 47 U/L (46-116); ALT (SGPT) 10 U/L (10-68); BILIRUBIN - TOTAL 0.54 mg/dL (0.2-1.3); CALC OSMOLALITY 271 mosm/kg (275-300); CALCIUM 8.5 mg/dL (8.5-10.1); CARBON DIOXIDE 28.4 mmol/L (21.0-32.0); CHLORIDE - SERUM 102 mmol/L (98-107); CREATININE - SERUM 0.7 mg/dL (0.6-1.3); GLUCOSE 96 mg/dL (74-106); POTASSIUM - SERUM 3.9 mmol/L (3.5-5.1); PROTEIN - SERUM 6.7 g/dL (6.4-8.2); SODIUM 137 mmol/L (136-145); eGFR NON AFRICAN AMERICAN 85 mL/min (90-120)
[2017-04-20 06:11] LABS: UREA NITROGEN 8 mg/dL (7-18)
[2017-04-21] VITALS: BP 148/76
[2017-04-21 04:00] VITALS: BP 142/68
[2017-04-21 10:26] VITALS: BP 174/69
[2017-04-21 12:54] LABS: CALC OSMOLALITY 270 mosm/kg (275-300); CALCIUM 8.8 mg/dL (8.5-10.1); CARBON DIOXIDE 27.1 mmol/L (21.0-32.0); CHLORIDE - SERUM 99 mmol/L (98-107); CREATININE - SERUM 0.6 mg/dL (0.6-1.3); GLUCOSE 136 mg/dL (74-106); POTASSIUM - SERUM 4.2 mmol/L (3.5-5.1); SODIUM 135 mmol/L (136-145); UREA NITROGEN 9 mg/dL (7-18); eGFR NON AFRICAN AMERICAN > 90 mL/min (90-120)
[2017-04-21 13:06] VITALS: BP 142/70
[2017-04-21 13:18] LABS: BASOPHILS 0 % (0-2); EOSINOPHILS 0 % (0-7); HEMOGLOBIN 11.8 g/dL (12-16); LYMPHOCYTES 11.5 % (15-50); MCH 26.9 pg (26.0-34.0); MCHC 31.1 g/dL (31.0-37.0); MCV 86.8 fL (80.0-100.0); MEAN PLATELET VOLUME 10.1 fL (7.4-10.4); MONOCYTES 2.9 % (2-11); NEUTROPHILS 85.6 % (40-80); PLATELET COUNT 221 10x3/uL (130-400); RBC 4.38 10x6/uL (4.00-5.40); RDW 14.2 % (11.5-14.5); WBC 3.8 10x3/uL (4.8-10.8)
[2017-04-21 20:00] VITALS: BP 119/57
[2017-04-22 04:00] VITALS: BP 155/67
[2017-04-22 04:58] LABS: BASOPHILS 0 % (0-2); EOSINOPHILS 0 % (0-7); HEMATOCRIT 36.1 % (36.0-48.0); HEMOGLOBIN 11.4 g/dL (12-16); IMMATURE GRANULOCYTES 0.2 % (0-5); LYMPHOCYTES 12.7 % (15-50); MCH 27.1 pg (26.0-34.0); MCHC 31.6 g/dL (31.0-37.0); MCV 85.7 fL (80.0-100.0); MEAN PLATELET VOLUME 10.1 fL (7.4-10.4); MONOCYTES 6.6 % (2-11); NEUTROPHILS 80.5 % (40-80); PLATELET COUNT 240 10x3/uL (130-400); RBC 4.21 10x6/uL (4.00-5.40); RDW 14.3 % (11.5-14.5); WBC 4.1 10x3/uL (4.8-10.8)
[2017-04-22 05:20] LABS: ANION GAP 11.6 mmol/L (8-16); CALCIUM 8.8 mg/dL (8.5-10.1); CARBON DIOXIDE 28.5 mmol/L (21.0-32.0); POTASSIUM - SERUM 4.1 mmol/L (3.5-5.1)
[2017-04-22 05:28] LABS: CREATININE - SERUM 0.8 mg/dL (0.6-1.3)
[2017-04-22 09:10] VITALS: BP 116/49
[2017-04-22 12:55] VITALS: BP 148/72
[2017-04-22 18:30] VITALS: BP 123/67
[2017-04-22 20:54] VITALS: BP 120/60
[2017-04-23 04:16] LABS: BASOPHILS 0 % (0-2); EOSINOPHILS 0 % (0-7); HEMATOCRIT 35.6 % (36.0-48.0); HEMOGLOBIN 11.1 g/dL (12-16); IMMATURE GRANULOCYTES 0.8 % (0-5); LYMPHOCYTES 15.8 % (15-50); MCH 26.9 pg (26.0-34.0); MCHC 31.2 g/dL (31.0-37.0); MCV 86.2 fL (80.0-100.0); MEAN PLATELET VOLUME 9.5 fL (7.4-10.4); NEUTROPHILS 74.4 % (40-80); PLATELET COUNT 228 10x3/uL (130-400); RBC 4.13 10x6/uL (4.00-5.40); RDW 14.3 % (11.5-14.5)
[2017-04-23 04:34] LABS: CALC OSMOLALITY 277 mosm/kg (275-300); CALCIUM 8.1 mg/dL (8.5-10.1); CARBON DIOXIDE 30.7 mmol/L (21.0-32.0); CHLORIDE - SERUM 102 mmol/L (98-107); CREATININE - SERUM 0.7 mg/dL (0.6-1.3); GLUCOSE 123 mg/dL (74-106); SODIUM 138 mmol/L (136-145); UREA NITROGEN 14 mg/dL (7-18); eGFR NON AFRICAN AMERICAN 85 mL/min (90-120)
[2017-04-23 06:52] VITALS: BP 162/12
[2017-04-23 10:06] VITALS: BP 95/65
[2017-04-23 12:31] VITALS: BP 121/56
[2017-04-23 17:43] VITALS: BP 113/66
[2017-04-23 20:00] VITALS: BP 168/65
[2017-04-24] VITALS: BP 156/69
[2017-04-24 05:27] LABS: BASOPHILS 0 % (0-2); EOSINOPHILS 0.2 % (0-7); HEMATOCRIT 36.5 % (36.0-48.0); IMMATURE GRANULOCYTES 1.4 % (0-5); LYMPHOCYTES 21.9 % (15-50); MCH 26.1 pg (26.0-34.0); MCHC 30.1 g/dL (31.0-37.0); MCV 86.7 fL (80.0-100.0); MEAN PLATELET VOLUME 9.9 fL (7.4-10.4); MONOCYTES 11.5 % (2-11); PLATELET COUNT 244 10x3/uL (130-400); RBC 4.21 10x6/uL (4.00-5.40); RDW 14.6 % (11.5-14.5); WBC 4.3 10x3/uL (4.8-10.8)
[2017-04-24 05:47] LABS: CALC OSMOLALITY 275 mosm/kg (275-300); CALCIUM 8.5 mg/dL (8.5-10.1); CARBON DIOXIDE 28.9 mmol/L (21.0-32.0); CHLORIDE - SERUM 100 mmol/L (98-107); CREATININE - SERUM 0.6 mg/dL (0.6-1.3); GLUCOSE 105 mg/dL (74-106); POTASSIUM - SERUM 4.1 mmol/L (3.5-5.1); SODIUM 137 mmol/L (136-145); UREA NITROGEN 17 mg/dL (7-18); eGFR NON AFRICAN AMERICAN > 90 mL/min (90-120)
[2017-04-24 09:20] VITALS: BP 152/72
[2017-04-24 11:43] VITALS: BP 135/68
[2017-04-24 16:10] VITALS: BP 121/69
[2017-04-24 20:00] VITALS: BP 101/62
[2017-04-25] VITALS: BP 147/93
[2017-04-25 04:00] VITALS: BP 134/67
[2017-04-25 04:42] LABS: BASOPHILS 0.2 % (0-2); HEMATOCRIT 35.4 % (36.0-48.0); HEMOGLOBIN 10.7 g/dL (12-16); LYMPHOCYTES 21.8 % (15-50); MCH 26.3 pg (26.0-34.0); MCHC 30.2 g/dL (31.0-37.0); MEAN PLATELET VOLUME 9.7 fL (7.4-10.4); MONOCYTES 14.1 % (2-11); NEUTROPHILS 59.9 % (40-80); PLATELET COUNT 239 10x3/uL (130-400); RBC 4.07 10x6/uL (4.00-5.40); RDW 14.7 % (11.5-14.5); WBC 5.1 10x3/uL (4.8-10.8)
[2017-04-25 04:59] LABS: CALC OSMOLALITY 275 mosm/kg (275-300); CALCIUM 8.1 mg/dL (8.5-10.1); CARBON DIOXIDE 32.6 mmol/L (21.0-32.0); CHLORIDE - SERUM 101 mmol/L (98-107); CREATININE - SERUM 0.7 mg/dL (0.6-1.3); GLUCOSE 87 mg/dL (74-106); POTASSIUM - SERUM 3.9 mmol/L (3.5-5.1); SODIUM 137 mmol/L (136-145); UREA NITROGEN 21 mg/dL (7-18); eGFR NON AFRICAN AMERICAN 85 mL/min (90-120)
[2017-04-25 08:20] VITALS: BP 109/68
[2017-04-25 11:56] VITALS: BP 124/64
[2017-04-25 15:35] VITALS: BP 122/62
[2017-04-25 21:11] VITALS: BP 121/57
[2017-04-26 04:27] VITALS: BP 98/58
[2017-04-26 06:11] LABS: BASOPHILS 0.2 % (0-2); HEMATOCRIT 35.3 % (36.0-48.0); HEMOGLOBIN 10.6 g/dL (12-16); IMMATURE GRANULOCYTES 2.3 % (0-5); LYMPHOCYTES 20.1 % (15-50); MCH 26.4 pg (26.0-34.0); MEAN PLATELET VOLUME 9.5 fL (7.4-10.4); MONOCYTES 12.5 % (2-11); NEUTROPHILS 61.9 % (40-80); PLATELET COUNT 250 10x3/uL (130-400); RBC 4.01 10x6/uL (4.00-5.40); WBC 5.6 10x3/uL (4.8-10.8)
[2017-04-26 06:31] LABS: CALC OSMOLALITY 275 mosm/kg (275-300); CALCIUM 8.1 mg/dL (8.5-10.1); CARBON DIOXIDE 32.6 mmol/L (21.0-32.0); CHLORIDE - SERUM 100 mmol/L (98-107); CREATININE - SERUM 0.7 mg/dL (0.6-1.3); GLUCOSE 79 mg/dL (74-106); POTASSIUM - SERUM 3.9 mmol/L (3.5-5.1); SODIUM 137 mmol/L (136-145); UREA NITROGEN 20 mg/dL (7-18); eGFR NON AFRICAN AMERICAN 85 mL/min (90-120)
[2017-04-26 08:37] VITALS: BP 133/58
[2017-04-26 12:13] VITALS: BP 121/70
[2017-04-26 16:46] VITALS: BP 105/49
[2017-04-26 20:00] VITALS: BP 145/61
[2017-04-27 04:00] VITALS: BP 114/63
[2017-04-27 05:17] LABS: BASOPHILS 0.2 % (0-2); EOSINOPHILS 6.1 % (0-7); HEMOGLOBIN 10.6 g/dL (12-16); IMMATURE GRANULOCYTES 1.9 % (0-5); LYMPHOCYTES 17.4 % (15-50); MCH 26.6 pg (26.0-34.0); MCHC 30.3 g/dL (31.0-37.0); MCV 87.9 fL (80.0-100.0); MEAN PLATELET VOLUME 9.4 fL (7.4-10.4); MONOCYTES 10.1 % (2-11); NEUTROPHILS 64.3 % (40-80); PLATELET COUNT 258 10x3/uL (130-400); RBC 3.98 10x6/uL (4.00-5.40); RDW 15.4 % (11.5-14.5); WBC 6.4 10x3/uL (4.8-10.8)
[2017-04-27 05:36] LABS: CALC OSMOLALITY 274 mosm/kg (275-300); CALCIUM 8.5 mg/dL (8.5-10.1); CARBON DIOXIDE 33.2 mmol/L (21.0-32.0); CHLORIDE - SERUM 100 mmol/L (98-107); CREATININE - SERUM 0.6 mg/dL (0.6-1.3); GLUCOSE 80 mg/dL (74-106); SODIUM 137 mmol/L (136-145); UREA NITROGEN 17 mg/dL (7-18); eGFR NON AFRICAN AMERICAN > 90 mL/min (90-120)
[2017-04-27 05:55] LABS: POTASSIUM - SERUM 4.5 mmol/L (3.5-5.1)
[2017-04-27 10:41] VITALS: BP 107/47
[2017-04-27 13:28] VITALS: BP 143/63
[2017-04-27 17:54] VITALS: BP 103/58
[2017-04-27 20:16] VITALS: BP 84/41
[2017-04-28 02:22] VITALS: BP 133/53
[2017-04-28 05:59] LABS: BASOPHILS 0.1 % (0-2); EOSINOPHILS 4.8 % (0-7); HEMATOCRIT 33.6 % (36.0-48.0); HEMOGLOBIN 10.2 g/dL (12-16); IMMATURE GRANULOCYTES 1.5 % (0-5); LYMPHOCYTES 10.7 % (15-50); MCH 26.6 pg (26.0-34.0); MCHC 30.4 g/dL (31.0-37.0); MCV 87.5 fL (80.0-100.0); MEAN PLATELET VOLUME 9.6 fL (7.4-10.4); MONOCYTES 9.4 % (2-11); NEUTROPHILS 73.5 % (40-80); PLATELET COUNT 249 10x3/uL (130-400); RBC 3.84 10x6/uL (4.00-5.40); RDW 15.6 % (11.5-14.5); WBC 7.9 10x3/uL (4.8-10.8)
[2017-04-28 06:17] LABS: CALC OSMOLALITY 273 mosm/kg (275-300); CALCIUM 8.3 mg/dL (8.5-10.1); CARBON DIOXIDE 32.7 mmol/L (21.0-32.0); CHLORIDE - SERUM 100 mmol/L (98-107); CREATININE - SERUM 0.7 mg/dL (0.6-1.3); GLUCOSE 100 mg/dL (74-106); POTASSIUM - SERUM 4.4 mmol/L (3.5-5.1); SODIUM 136 mmol/L (136-145); UREA NITROGEN 17 mg/dL (7-18); eGFR NON AFRICAN AMERICAN 85 mL/min (90-120)
[2017-04-28 08:34] VITALS: BP 99/56
[2017-04-28 11:50] VITALS: BP 104/49
[2017-04-28] MEDS ORDERED: XARELTO15 MG PO (13:50)
[2017-04-28 16:22] VITALS: BP 91/53
[2017-04-29 11:18] LABS: ANA REFLEX - DIRECT Negative (Negative)
== END 2017-04-28 19:56 | DRG 175 ==
LOC: D.ER 03:18 → D.M2 06:28 → D.SDCHOLD 06:28 → D.M2 18:36
PROVIDERS: Family Medicine; Internal Medicine Nephrology; Internal Medicine Pulmonary Disease
DX: I26.99 Other pulmonary embolism without acute cor pulmonale (principal); J18.9 Pneumonia, unspecified organism; J96.21 Acute and chronic respiratory failure with hypoxia; J44.1 Chronic obstructive pulmonary disease with (acute) exacerbation; J44.0 Chronic obstructive pulmonary disease with (acute) lower respiratory infection; E03.9 Hypothyroidism, unspecified; F41.9 Anxiety disorder, unspecified; Z87.891 Personal history of nicotine dependence

== ENCOUNTER 2017-05-01 07:34 | Inpatient (IN) | payer MEDICARE, BC ==
--- NOTE | ~2017-05-01 | CN ---
PATIENT NAME:HENRIQUE CLAY MEDICAL RECORD: [id number] : 35 LOCATION:D.MS [place]2213 ADMIT DATE: 05/01/17 ACCOUNT: [id number] CONSULTING PHYSICIAN: RENEE MARIE MD REFERRING PHYSICIAN: ISABELLE SANCHEZ MD DATE OF CONSULTATION: 05/02/2017 CONSULT REQUESTING PHYSICIAN: Arlette Plasencia MD REASON FOR CONSULTATION: Hemoptysis and pneumonia, left lower lobe. HISTORY OF PRESENT ILLNESS: Ms. Clay is an 82-year-old female who was just discharged 3 days ago after having pneumonia and chronic obstructive pulmonary disease exacerbation and pulmonary embolism. Since her discharge, she had worsening shortness of breath. She started coughing blood. The blood is purely fresh and there are no big clots. Denies any chest pain. REVIEW OF SYSTEMS: As in the history of present illness. PAST MEDICAL HISTORY: 1. COPD. 2. Pulmonary embolism. 3. Chronic hypoxic respiratory failure. 4. Anxiety. 5. Question CA of the lung. PAST SURGICAL HISTORY: Status post hip surgery. ALLERGIES: There are no known drug allergies. PRESENT MEDICATIONS: She is on Rocephin IV, Zithromax IV, Xarelto 15 mg b.i.d. Her other medications are reviewed. PERSONAL AND SOCIAL HISTORY: The patient is an ex-smoker, nondrinker. She is now a half-way resident. FAMILY HISTORY: Noncontributory. PHYSICAL EXAMINATION: GENERAL: Now, the patient is lying comfortably. She is not in acute distress. VITAL SIGNS: The blood pressure is 106/46, pulse is 64, respirations 17, temperature 98.2, SPO2 is 95% on 3 liters nasal cannula. HEENT: Conjunctivae pink, sclerae nonicteric. NECK: Supple, no JVD. CHEST: There is a wheeze on forceful expiration. There are crackles at the left base. HEART: Rhythm regular, normal sound, no murmur. ABDOMEN: Soft, bowel sounds present. No hepatosplenomegaly. RECTAL: Deferred. EXTREMITIES: No cyanosis, no clubbing, no pedal edema. SKIN: Warm, normal turgor. CENTRAL NERVOUS SYSTEM: The patient is awake and alert. There are no obvious cranial nerve abnormalities. The gait was not tested. IMAGING: Chest radiograph, there is a consolidation of the left lower lobe. CONSULT REPORT [id number] HENRIQUE CLAY LABORATORY DATA: CBC: WBC 6.1, hemoglobin 8.3, hematocrit 31.3, the platelet count is 257. Chemistry: Sodium 137, potassium 4.2, BUN is 10, creatinine 0.7. IMPRESSION: 1. Iihft-qa-fhsekrj hypoxic respiratory failure. 2. Pneumonia, left lower lobe, most likely hospital-acquired pneumonia and acute exacerbation of chronic obstructive pulmonary disease. 3. Hemoptysis. 4. Pulmonary embolism. RECOMMENDATIONS: 1. Would discontinue Zithromax and Rocephin. Discontinue albuterol nebulizer. Start on Xopenex and ipratropium nebulizer, Brovana and budesonide nebulizer. 2. Methylprednisolone IV. 3. Racemic AP nebulizer p.r.n. 4. Check the CT scan of the chest. 5. Start on Levaquin, cefepime, and vancomycin IV to cover for hospital-acquired pneumonia, Gram-negative rods as well as questionable MRSA. 6. Follow up labs and chest radiograph. 7. Continue Xarelto [address] Plasencia, thank you for involving me in the care of Ms. Clay. TRANSINT:[id number] Voice Confirmation ID: [id number] DOCUMENT ID: [id number] RENEE MARIE MD at 1340 CC: ARLETTE PLASENCIA [id number] DICTATION DATE: 05/02/17 1800 FINANCIAL PLANNING ADVISER: 05/02/17 2221 DIS IN 05/05/17 [place] [id number] [place] [id number]
[~2017-05-01 07:34] MED LIST changes: +CELEXA20 MG PO; +NEURONTIN 400400 MG PO; +SENNA LAXATIVE8.6 MG PO; +XANAX0.25 MG PO; +XARELTO15 MG PO
[2017-05-01 08:29] LABS: BASOPHILS 0.3 % (0-2); EOSINOPHILS 1.7 % (0-7); HEMATOCRIT 31.3 % (36.0-48.0); HEMOGLOBIN 9.5 g/dL (12-16); IMMATURE GRANULOCYTES 0.5 % (0-5); LYMPHOCYTES 16.8 % (15-50); MCH 26.4 pg (26.0-34.0); MCHC 30.4 g/dL (31.0-37.0); MCV 86.9 fL (80.0-100.0); MEAN PLATELET VOLUME 9.8 fL (7.4-10.4); MONOCYTES 10.6 % (2-11); NEUTROPHILS 70.1 % (40-80); PLATELET COUNT 257 10x3/uL (130-400); RDW 16.1 % (11.5-14.5); WBC 9.6 10x3/uL (4.8-10.8)
[2017-05-01 08:55] LABS: ALBUMIN 2.6 g/dL (3.4-5.0); ALKALINE PHOSPHATASE 44 U/L (46-116); ALT (SGPT) 16 U/L (10-68); CALC OSMOLALITY 272 mosm/kg (275-300); CALCIUM 8.3 mg/dL (8.5-10.1); CARBON DIOXIDE 27.5 mmol/L (21.0-32.0); CHLORIDE - SERUM 101 mmol/L (98-107); CREATININE - SERUM 0.7 mg/dL (0.6-1.3); GLUCOSE 99 mg/dL (74-106); POTASSIUM - SERUM 4.2 mmol/L (3.5-5.1); PROTEIN - SERUM 6.1 g/dL (6.4-8.2); SODIUM 137 mmol/L (136-145); UREA NITROGEN 10 mg/dL (7-18); eGFR NON AFRICAN AMERICAN 85 mL/min (90-120)
[2017-05-01 08:58] LABS: PRO BNP 335 pg/mL (0-450)
[2017-05-01 12:15] VITALS: BP 94/61; BMI 29.0
[2017-05-01 12:44] VITALS: BP 94/61
[2017-05-01 15:56] VITALS: BP 92/73
[2017-05-01 20:00] VITALS: BP 107/50
[2017-05-02] VITALS: BP 105/43
[2017-05-02 04:00] VITALS: BP 106/56
[2017-05-02 09:06] VITALS: BP 106/52
[2017-05-02 10:33] LABS: BASOPHILS 0.3 % (0-2); EOSINOPHILS 3.6 % (0-7); HEMATOCRIT 27.7 % (36.0-48.0); HEMOGLOBIN 8.3 g/dL (12-16); IMMATURE GRANULOCYTES 0.5 % (0-5); LYMPHOCYTES 12.1 % (15-50); MCH 26.2 pg (26.0-34.0); MCV 87.4 fL (80.0-100.0); MEAN PLATELET VOLUME 9.3 fL (7.4-10.4); MONOCYTES 11.5 % (2-11); PLATELET COUNT 257 10x3/uL (130-400); RBC 3.17 10x6/uL (4.00-5.40); RDW 16.2 % (11.5-14.5)
[2017-05-02 10:35] LABS: WBC 6.1 10x3/uL (4.8-10.8)
[2017-05-02 10:50] LABS: ALBUMIN 2.2 g/dL (3.4-5.0); ALKALINE PHOSPHATASE 40 U/L (46-116); ALT (SGPT) 14 U/L (10-68); BILIRUBIN - TOTAL 0.18 mg/dL (0.2-1.3); CALC OSMOLALITY 272 mosm/kg (275-300); CALCIUM 8.1 mg/dL (8.5-10.1); CARBON DIOXIDE 30.1 mmol/L (21.0-32.0); CHLORIDE - SERUM 104 mmol/L (98-107); CREATININE - SERUM 0.6 mg/dL (0.6-1.3); GLUCOSE 114 mg/dL (74-106); PROTEIN - SERUM 6.1 g/dL (6.4-8.2); SODIUM 137 mmol/L (136-145); UREA NITROGEN 8 mg/dL (7-18); eGFR NON AFRICAN AMERICAN > 90 mL/min (90-120)
[2017-05-02 13:22] VITALS: BP 106/46
[2017-05-02 14:00] VITALS: BMI 29.0
[2017-05-02 17:29] VITALS: BP 94/43
[2017-05-02 20:00] VITALS: BP 127/48
[2017-05-03] VITALS: BP 130/66
[2017-05-03 04:00] VITALS: BP 152/84
[2017-05-03 06:17] LABS: HEMATOCRIT 30.4 % (36.0-48.0); HEMOGLOBIN 9.5 g/dL (12-16); LYMPHOCYTES 6.4 % (15-50); MCH 26.8 pg (26.0-34.0); MCHC 31.3 g/dL (31.0-37.0); MCV 85.9 fL (80.0-100.0); MEAN PLATELET VOLUME 9.3 fL (7.4-10.4); NEUTROPHILS 92.2 % (40-80); PLATELET COUNT 323 10x3/uL (130-400); RBC 3.54 10x6/uL (4.00-5.40); RDW 15.1 % (11.5-14.5); WBC 5.3 10x3/uL (4.8-10.8)
[2017-05-03 06:21] LABS: ALBUMIN 2.5 g/dL (3.4-5.0); ANION GAP 11.7 mmol/L (8-16); BILIRUBIN - TOTAL 0.2 mg/dL (0.2-1.3); CARBON DIOXIDE 27.9 mmol/L (21.0-32.0); POTASSIUM - SERUM 4.6 mmol/L (3.5-5.1); PROTEIN - SERUM 6.9 g/dL (6.4-8.2)
[2017-05-03 06:24] LABS: CREATININE - SERUM 0.8 mg/dL (0.6-1.3)
[2017-05-03 09:28] VITALS: BP 111/60
[2017-05-03 12:41] VITALS: BP 122/64
[2017-05-03 16:39] VITALS: BP 145/66
[2017-05-03 20:00] VITALS: BP 142/65
[2017-05-04 04:00] VITALS: BP 146/64
[2017-05-04 05:56] LABS: BASOPHILS 0 % (0-2); EOSINOPHILS 0 % (0-7); HEMATOCRIT 28.8 % (36.0-48.0); HEMOGLOBIN 8.6 g/dL (12-16); IMMATURE GRANULOCYTES 0.5 % (0-5); LYMPHOCYTES 5.9 % (15-50); MCHC 29.9 g/dL (31.0-37.0); MEAN PLATELET VOLUME 9.6 fL (7.4-10.4); MONOCYTES 6.2 % (2-11); NEUTROPHILS 87.4 % (40-80); PLATELET COUNT 318 10x3/uL (130-400); RBC 3.31 10x6/uL (4.00-5.40); RDW 15.4 % (11.5-14.5)
[2017-05-04 06:18] LABS: WBC 6.7 10x3/uL (4.8-10.8)
[2017-05-04 06:47] LABS: ALBUMIN 2.4 g/dL (3.4-5.0); ALKALINE PHOSPHATASE 46 U/L (46-116); ALT (SGPT) 14 U/L (10-68); BILIRUBIN - TOTAL 0.23 mg/dL (0.2-1.3); CALC OSMOLALITY 278 mosm/kg (275-300); CALCIUM 8.7 mg/dL (8.5-10.1); CARBON DIOXIDE 28.2 mmol/L (21.0-32.0); CHLORIDE - SERUM 103 mmol/L (98-107); CREATININE - SERUM 0.6 mg/dL (0.6-1.3); GLUCOSE 136 mg/dL (74-106); POTASSIUM - SERUM 4.5 mmol/L (3.5-5.1); PROTEIN - SERUM 6.6 g/dL (6.4-8.2); SODIUM 139 mmol/L (136-145); eGFR NON AFRICAN AMERICAN > 90 mL/min (90-120)
[2017-05-04 06:48] LABS: UREA NITROGEN 11 mg/dL (7-18)
[2017-05-04 08:45] VITALS: BP 132/67
[2017-05-04 13:03] VITALS: BP 126/57
[2017-05-04 16:59] VITALS: BP 121/56
[2017-05-04 20:00] VITALS: BP 131/64
[2017-05-04 23:41] VITALS: BP 149/70
[2017-05-05 05:11] LABS: BASOPHILS 0 % (0-2); EOSINOPHILS 0 % (0-7); HEMATOCRIT 30.4 % (36.0-48.0); IMMATURE GRANULOCYTES 0.8 % (0-5); LYMPHOCYTES 9.9 % (15-50); MCH 26.2 pg (26.0-34.0); MCHC 29.6 g/dL (31.0-37.0); MCV 88.4 fL (80.0-100.0); MEAN PLATELET VOLUME 9.2 fL (7.4-10.4); MONOCYTES 6.9 % (2-11); NEUTROPHILS 82.4 % (40-80); PLATELET COUNT 299 10x3/uL (130-400); RBC 3.44 10x6/uL (4.00-5.40); RDW 15.6 % (11.5-14.5); WBC 5.9 10x3/uL (4.8-10.8)
[2017-05-05 05:33] LABS: ALBUMIN 2.6 g/dL (3.4-5.0); ALKALINE PHOSPHATASE 44 U/L (46-116); BILIRUBIN - TOTAL 0.26 mg/dL (0.2-1.3); CALC OSMOLALITY 278 mosm/kg (275-300); CALCIUM 8.9 mg/dL (8.5-10.1); CARBON DIOXIDE 30.7 mmol/L (21.0-32.0); CHLORIDE - SERUM 102 mmol/L (98-107); CREATININE - SERUM 0.7 mg/dL (0.6-1.3); GLUCOSE 119 mg/dL (74-106); POTASSIUM - SERUM 4.5 mmol/L (3.5-5.1); PROTEIN - SERUM 6.8 g/dL (6.4-8.2); SODIUM 139 mmol/L (136-145); UREA NITROGEN 13 mg/dL (7-18); eGFR NON AFRICAN AMERICAN 85 mL/min (90-120)
[2017-05-05 05:35] LABS: ALT (SGPT) 47 U/L (10-68)
[2017-05-05 09:30] VITALS: BP 145/61
[2017-05-05 12:40] VITALS: BP 115/55
[2017-05-05] MEDS ORDERED: MUCINEX600 MG PO (15:00)
[2017-05-05] MEDS ORDERED: TESSALON PERLE100 MG PO (15:00)
[2017-05-05] MEDS ORDERED: PREDNISONE10 MG PO (15:01)
[2017-05-05] MEDS ORDERED: FLORAJEN3 CAPS460 MG PO (15:02)
[2017-05-05] MEDS ORDERED: LEVAQUIN750 MG PO (15:02)
== END 2017-05-05 18:37 | disposition home or self-care (01) | DRG 193 ==
LOC: D.ER 07:34 → D.MS 10:24 → D.SDCHOLD 05-03 11:24 → D.MS 05-03 11:24
PROVIDERS: Emergency Medicine
DX: J18.9 Pneumonia, unspecified organism (principal); I26.99 Other pulmonary embolism without acute cor pulmonale; J96.21 Acute and chronic respiratory failure with hypoxia; J44.0 Chronic obstructive pulmonary disease with (acute) lower respiratory infection; J44.1 Chronic obstructive pulmonary disease with (acute) exacerbation; F41.8 Other specified anxiety disorders; Z85.118 Personal history of other malignant neoplasm of bronchus and lung

== ENCOUNTER 2018-01-17 13:45 | Inpatient (IN) | payer MEDICARE, BC ==
[~2018-01-17] VITALS: Ht 170.2 cm; Wt 94.2 kg
--- NOTE | ~2018-01-17 | MORECARE ---
CASE MANAGEMENT DISCHARGE SUMMARY PATIENT: HENRIQUE CLAY UNIT: [id number] ADM DATE: 01/17/18 AGE: 83 : 35 SEX: F ROOM/BED: D.2222 AUTHOR: GARRY,DOC PHYSICIAN: REFERRING PHYSICIAN: ISABELLE SANCHEZ MD DATE OF SERVICE: 01/21/18 Discharge Plan Patient Name: HENRIQUE CLAY Facility: [facility]:[place] : 1935 Planned Disposition: Nursing Facility [facility] Cert Anticipated Discharge Date: 01/21/18 Discharge Date: Expected LOS: 4 Initial Reviewer: [email or web address] Initial Review Date: 01/17/2018 Generated: 01/21/18 6:17 pm Comments DCP- Discharge Planning Updated by [email or web address]: Ana Miranda on 01/21/18 4:[address] LATE ENTRY 1100 CM RECEIVED TELEPHONE CALL TODAY REGARDING LETTER SENT FROM [facility] TO HOLD PATIENT BED AT [facility] PAYMENT WOULD BE REQUIRED STARTING Tuesday01/22/18. CM ADVISED I COULD NOT ADDRESS THE ISSUE. THE POA WOULD NEED TO CALL AND SPEAK WITH SOMEONE AT [facility]. SHE SAID THEY HAD RECEIVED A TELEPHONE CALL ASKING IF THEY WANTED THE BED HELD. THEY WERE NOT INFORMED AT THE TIME THAT PAYMENT WOULD BE REQUIRED. CM ENCOURAGED CONTACT WITH ADMINISTRATIVE STAFF AT THE FACILITY TO CLARIFY. DCP- Discharge Planning Updated by [email or web address]: Saba Burnham on 01/17/18 5:[address] Patient Name: HENRIQUE CLAY Admission Status: ER Accout number: [id number] Admission Date: 01-17-2018 : 1935 Admission Diagnosis: Attending: ISABELLE SANCHEZ Current LOS: 1 Anticipated DC Date: 01-21-2018 Planned Disposition: Nursing Facility [facility] Cert Primary Insurance: MEDICARE A & B Discharge Planning Comments: CM met with patient to complete initial dc planning assessment. CM educated patient on the CM role and verbal consent given by patient to complete assessment. Patient lives at [facility]. At discharge patient plans to return to [place] and feels this is a safe discharge. Patient denied known discharge needs at this time. CM will continue to follow and will assist as needed with dc plans/needs. See below for more assessment information. Marine Fisheries Technician: Saba Burnham RN, [facility] DCPIA - Discharge Planning Initial Assessment Updated by [email or web address]: Saba Burnham on 01/17/18 6:20 pm * Is the patient Alert and Oriented? Yes * How many steps to enter\exit or inside your home? None * PCP Care Home physician * Pharmacy shelter pharmacy * Preadmission Environment Intermediate Facility * Facility Name [facility] * ADLs Partial Dependent * Partial ADLs (Assistance needed) Ambulation Bathing Dressing Medication Management Toileting Transfers * Equipment Rolling Walker Wheelchair * List name and contact numbers for known caregivers / representatives who currently or will assist patient after discharge: Radha esquivel - [phone] * Verbal permission to speak to the caregivers and representatives has been obtained from the patient. Yes * Community resources currently utilized None * Additional services required to return to the preadmission environment? No * Can the patient safely return to the preadmission environment? Yes * Has this patient been hospitalized within the prior 30 days at any hospital? No Last DP export: 01/17/18 5:28 p Patient Name: HENRIQUE CLAY Page [id number] at 1717 All edits/amendments must be made on the electronic document DICTATION DATE: 01/21/181716 SERVICE TRAINER: MATTHEW 01/21/181716 RPT#: [id number] DC DATE: STATUS: ADM IN [facility] [address] [place] [address] END OF REPORT
--- NOTE | ~2018-01-17 | MORECARE ---
CASE MANAGEMENT DISCHARGE SUMMARY PATIENT: HENRIQUE CLAY UNIT: [id number] ADM DATE: 01/17/18 AGE: 83 : 35 SEX: F ROOM/BED: D.2310 AUTHOR: GARRY,DOC PHYSICIAN: REFERRING PHYSICIAN: ISABELLE SANCHEZ MD DATE OF SERVICE: 01/25/18 Discharge Plan Patient Name: HENRIQUE CLAY Facility: [facility]:[place] : 1935 Planned Disposition: Nursing Facility [facility] Cert Anticipated Discharge Date: 01/21/18 Discharge Date: Expected LOS: 4 Initial Reviewer: [email or web address] Initial Review Date: 01/17/2018 Generated: 01/25/18 1:21 pm Comments DCP- Discharge Planning Updated by [email or web address]: Ana Miranda on 01/21/18 4:[address] LATE ENTRY 1100 CM RECEIVED TELEPHONE CALL TODAY REGARDING LETTER SENT FROM [place] [facility] TO HOLD PATIENT BED AT [facility] PAYMENT WOULD BE REQUIRED STARTING Tuesday01/22/18. CM ADVISED I COULD NOT ADDRESS THE ISSUE. THE POA WOULD NEED TO CALL AND SPEAK WITH SOMEONE AT [facility]. SHE SAID THEY HAD RECEIVED A TELEPHONE CALL ASKING IF THEY WANTED THE BED HELD. THEY WERE NOT INFORMED AT THE TIME THAT PAYMENT WOULD BE REQUIRED. CM ENCOURAGED CONTACT WITH ADMINISTRATIVE STAFF AT THE FACILITY TO CLARIFY. DCP- Discharge Planning Updated by [email or web address]: Saba Burnham on 01/17/18 5:[address] Patient Name: HENRIQUE CLAY Admission Status: ER Accout number: [id number] Admission Date: 01-17-2018 : 1935 Admission Diagnosis: Attending: ISABELLE SANCHEZ Current LOS: 1 Anticipated DC Date: 01-21-2018 Planned Disposition: Nursing Facility [facility] Cert Primary Insurance: MEDICARE A & B Discharge Planning Comments: CM met with patient to complete initial dc planning assessment. CM educated patient on the CM role and verbal consent given by patient to complete assessment. Patient lives at [facility]. At discharge patient plans to return to [place] and feels this is a safe discharge. Patient denied known discharge needs at this time. CM will continue to follow and will assist as needed with dc plans/needs. See below for more assessment information. [employer] Targeting Supervisor: Saba Burnham RN, [facility] DCPIA - Discharge Planning Initial Assessment Updated by [email or web address]: Saba Burnham on 01/17/18 6:20 pm * Is the patient Alert and Oriented? Yes * How many steps to enter\exit or inside your home? None * PCP [facility] physician * Pharmacy [facility] pharmacy * Preadmission Environment Shelter Facility * Facility Name [facility] * ADLs Partial Dependent * Partial ADLs (Assistance needed) Ambulation Bathing Dressing Medication Management Toileting Transfers * Equipment Rolling Walker Wheelchair * List name and contact numbers for known caregivers / representatives who currently or will assist patient after discharge: Radha esquivel - [phone] * Verbal permission to speak to the caregivers and representatives has been obtained from the patient. Yes * Community resources currently utilized None * Additional services required to return to the preadmission environment? No * Can the patient safely return to the preadmission environment? Yes * Has this patient been hospitalized within the prior 30 days at any hospital? No External Providers External Provider: [facility] Next Contact Date: Service Request Date: Service Type: Resolution: Reviewer: Comments: Last DP export: 01/21/18 4:17 Patient Name: HENRIQUE CLAY Page [id number] at 1221 All edits/amendments must be made on the electronic document DICTATION DATE: 01/25/18 1221 TILE FINISHER: MATTHEW 01/25/18 1221 RPT#: [id number] IN DATE: STATUS: ADM IN [facility] [address] [place] [address] END OF REPORT
--- NOTE | ~2018-01-17 | MORECARE ---
CASE MANAGEMENT DISCHARGE SUMMARY PATIENT: HENRIQUE CLAY UNIT: [id number] ADM DATE: 01/17/18 AGE: 83 : 35 SEX: F ROOM/BED: D.2310 AUTHOR: GARRY,DOC PHYSICIAN: REFERRING PHYSICIAN: ISABELLE SANCHEZ MD DATE OF SERVICE: 01/26/18 Discharge Plan Patient Name: HENRIQUE CLAY Facility: [facility]:[place] : 1935 Planned Disposition: Nursing Facility E[facility] Cert Anticipated Discharge Date: 01/21/18 Discharge Date: Expected LOS: 4 Initial Reviewer: [email or web address] Initial Review Date: 01/17/2018 Generated: 01/26/18 11:03 am Comments DCP- Discharge Planning Updated by [email or web address]: Yazmin Alex on 01/25/18 3:[address] CM received notice to set up patient to return to [facility] Hospice. CM called and spoke with Ayleen at [place] [phone]. and faxed clinical [phone]. CM explained that MD had written order for Hospice with the same provider as patients roommate at facility. CM received call back from Ayleen around 2 pm that they are having to get high flow 02 delivered before they can accept patient back. Family spoke with nurse and stated that they would like [facility] for Hospice Care. CM awaiting to hear from [place] as to when 02 is available for acceptance. CM will continue to follow and assist as needed with discharge planning/ needs. DCP- Discharge Planning Updated by [email or web address]: Ana Miranda on 01/21/18 4:[address] LATE ENTRY 1100 CM RECEIVED TELEPHONE CALL TODAY REGARDING LETTER SENT FROM [facility] TO HOLD PATIENT BED AT [facility] PAYMENT WOULD BE REQUIRED STARTING Tuesday01/22/18. CM ADVISED I COULD NOT ADDRESS THE ISSUE. THE POA WOULD NEED TO CALL AND SPEAK WITH SOMEONE AT [facility]. SHE SAID THEY HAD RECEIVED A TELEPHONE CALL ASKING IF THEY WANTED THE BED HELD. THEY WERE NOT INFORMED AT THE TIME THAT PAYMENT WOULD BE REQUIRED. CM ENCOURAGED CONTACT WITH ADMINISTRATIVE STAFF AT THE FACILITY TO CLARIFY. DCP- Discharge Planning Updated by [email or web address]: Saba Burnham on 01/17/18 5:[address] Patient Name: HENRIQUE CLAY Admission Status: ER Accout number: [id number] Admission Date: 01-17-2018 : 1935 Admission Diagnosis: Attending: ISABELLE SANCHEZ Current LOS: 1 Anticipated DC Date: 01-21-2018 Planned Disposition: Nursing Facility [facility] Primary Insurance: MEDICARE A & B Discharge Planning Comments: CM met with patient to complete initial dc planning assessment. CM educated patient on the CM role and verbal consent given by patient to complete assessment. Patient lives at [facility]. At discharge patient plans to return to [place] and feels this is a safe discharge. Patient denied known discharge needs at this time. CM will continue to follow and will assist as needed with dc plans/needs. See below for more assessment information. Broadcaster: Saba Burnham RN, [facility] DCPIA - Discharge Planning Initial Assessment Updated by [email or web address]: Saba Burnham on 01/17/18 6:20 pm * Is the patient Alert and Oriented? Yes * How many steps to enter\exit or inside your home? None * PCP Alf physician * Pharmacy [facility] * Preadmission Environment Senior Care Facility * Facility Name [facility] * ADLs Partial Dependent * Partial ADLs (Assistance needed) Ambulation Bathing Dressing Medication Management Toileting Transfers * Equipment Rolling Walker Wheelchair * List name and contact numbers for known caregivers / representatives who currently or will assist patient after discharge: Radha esquivel - [phone] * Verbal permission to speak to the caregivers and representatives has been obtained from the patient. Yes * Community resources currently utilized None * Additional services required to return to the preadmission environment? No * Can the patient safely return to the preadmission environment? Yes * Has this patient been hospitalized within the prior 30 days at any hospital? No External Providers External Provider: [facility] *(provides inpt [facility] Next Contact Date: Service Request Date: Service Type: Resolution: Reviewer: Comments: Coverage Notice Reviewer: [email or web address] - Yazmin Alex Notice Issued Date-Time: 01/25/2018 15:15 Notice Type: IM Discharge Notice Notice Delivered To: Patient Relationship to Patient: Self Recordak Operator Name: Delivery Method: HAND - Hand Delivered Carmen Days: Prior Verbal Notification: Recipient Understood Notice: Yes Recipient Signature: Yes Med Rec Note Co-signed by Attending: Coverage Notice Comment: Last DP export: 01/25/18 3:49 Patient Name: HENRIQUE CLAY Page [id number] at 1003 All edits/amendments must be made on the electronic document DICTATION DATE: 01/26/18 1003 FACETER: MATTHEW 01/26/18 1003 RPT#: [id number] DC DATE: STATUS: ADM IN [facility] [address] [place] [address] END OF REPORT
--- NOTE | ~2018-01-17 | MORECARE ---
CASE MANAGEMENT DISCHARGE SUMMARY PATIENT: HENRIQUE CLAY UNIT: [id number] ADM DATE: 01/17/18 AGE: 83 : 35 SEX: F ROOM/BED: D.2310 AUTHOR: GARRY,DOC PHYSICIAN: REFERRING PHYSICIAN: ISABELLE SANCHEZ MD DATE OF SERVICE: 01/26/18 Discharge Plan Patient Name: HENRIQUE CLAY Facility: [facility]:[place] : 1935 Planned Disposition: Nursing Facility [facility] Cert Anticipated Discharge Date: 01/21/18 Discharge Date: 01/26/2018 Expected LOS: 4 Initial Reviewer: [email or web address] Initial Review Date: 01/17/2018 Generated: 01/26/18 6:39 pm Comments DCP- Discharge Planning Updated by [email or web address]: Yazmin Alex on 01/25/18 3:[address] CM received notice to set up patient to return to [facility] H[facility]ice. CM called and spoke with Ayleen at [facility] [phone]. and faxed clinical [phone]. CM explained that MD had written order for Hospice with the same provider as patients roommate at facility. CM received call back from Ayleen around 2 pm that they are having to get high flow 02 delivered before they can accept patient back. Family spoke with nurse and stated that they would like [facility] for Hospice Care. CM awaiting to hear from [facility] as to when 02 is available for acceptance. CM will continue to follow and assist as needed with discharge planning/ needs. DCP- Discharge Planning Updated by [email or web address]: Ana Miranda on 01/21/18 4:[address] LATE ENTRY 1100 CM RECEIVED TELEPHONE CALL TODAY REGARDING LETTER SENT FROM [facility] TO HOLD PATIENT BED AT [facility] PAYMENT WOULD BE REQUIRED STARTING Tuesday01/22/18. CM ADVISED I COULD NOT ADDRESS THE ISSUE. THE POA WOULD NEED TO CALL AND SPEAK WITH SOMEONE AT [facility]. SHE SAID THEY HAD RECEIVED A TELEPHONE CALL ASKING IF THEY WANTED THE BED HELD. THEY WERE NOT INFORMED AT THE TIME THAT PAYMENT WOULD BE REQUIRED. CM ENCOURAGED CONTACT WITH ADMINISTRATIVE STAFF AT THE FACILITY TO CLARIFY. DCP- Discharge Planning Updated by [email or web address]: Saba Burnham on 01/17/18 5:[address] Patient Name: HENRIQUE CLAY Admission Status: ER Accout number: [id number] Admission Date: 01-17-2018 : 1935 Admission Diagnosis: Attending: ISABELLE SANCHEZ Current LOS: 1 Anticipated DC Date: 01-21-2018 Planned Disposition: Nursing Facility [facility] Primary Insurance: MEDICARE A & B Discharge Planning Comments: CM met with patient to complete initial dc planning assessment. CM educated patient on the CM role and verbal consent given by patient to complete assessment. Patient lives at [facility]. At discharge patient plans to return to [facility] and feels this is a safe discharge. Patient denied known discharge needs at this time. CM will continue to follow and will assist as needed with dc plans/needs. See below for more assessment information. Engraver Ornamental Design: Saba Burnham RN, [facility] DCPIA - Discharge Planning Initial Assessment Updated by [email or web address]: Saba Burnham on 01/17/18 6:20 pm * Is the patient Alert and Oriented? Yes * How many steps to enter\exit or inside your home? None * PCP Detention physician * Pharmacy long-term pharmacy * Preadmission Environment [facility] * Facility Name [facility] * ADLs Partial Dependent * Partial ADLs (Assistance needed) Ambulation Bathing Dressing Medication Management Toileting Transfers * Equipment Rolling Walker Wheelchair * List name and contact numbers for known caregivers / representatives who currently or will assist patient after discharge: Radha Garibay Mohinder alvin - [phone] * Verbal permission to speak to the caregivers and representatives has been obtained from the patient. Yes * Community resources currently utilized None * Additional services required to return to the preadmission environment? No * Can the patient safely return to the preadmission environment? Yes * Has this patient been hospitalized within the prior 30 days at any hospital? No Coverage Notice Reviewer: [email or web address] - Yazmin Alex Notice Issued Date-Time: 01/25/2018 15:15 Notice Type: IM Discharge Notice Notice Delivered To: Patient Relationship to Patient: Self Chemical Sales Representative Name: Delivery Method: HAND - Hand Delivered Carmen Days: Prior Verbal Notification: Recipient Understood Notice: Yes Recipient Signature: Yes Med Rec Note Co-signed by Attending: Coverage Notice Comment: Last DP export: 01/26/18 9:03 Patient Name: HENRIQUE CLAY Page 02310 at 1739 All edits/amendments must be made on the electronic document DICTATION DATE: 01/26/181737 TENNIS INSTRUCTOR: MATTHEW 01/26/181737 RPT#: [id number] DC DATE:01/26/18 STATUS: DIS IN [facility] [address] [place] [address] END OF REPORT
--- NOTE | ~2018-01-17 | MORECARE ---
CASE MANAGEMENT DISCHARGE SUMMARY PATIENT: HENRIQUE CLAY UNIT: [id number] ADM DATE: 01/17/18 AGE: 83 : 35 SEX: F ROOM/BED: D.2310 AUTHOR: GARRY,DOC PHYSICIAN: REFERRING PHYSICIAN: ISABELLE SANCHEZ MD DATE OF SERVICE: 01/25/18 Discharge Plan Patient Name: HENRIQUE CLAY Facility: [facility]:[place] : 1935 Planned Disposition: Nursing Facility [facility] Cert Anticipated Discharge Date: 01/21/18 Discharge Date: Expected LOS: 4 Initial Reviewer: [email or web address] Initial Review Date: 01/17/2018 Generated: 01/25/18 5:49 pm Comments DCP- Discharge Planning Updated by [email or web address]: Yazmin Alex on 01/25/18 3:[address] CM received notice to set up patient to return to [facility] with Hospice. CM called and spoke with Ayleen at [facility] [phone]. and faxed clinical [phone]. CM explained that MD had written order for Hospice with the same provider as patients roommate at facility. CM received call back from A[facility]en around 2 pm that they are having to get high flow 02 delivered before they can accept patient back. Family spoke with nurse and stated that they would like [facility] for Hospice Care. CM awaiting to hear from [facility] as to when 02 is available for acceptance. CM will continue to follow and assist as needed with discharge planning/ needs. DCP- Discharge Planning Updated by [email or web address]: Ana Miranda on 01/21/18 4:[address] LATE ENTRY 1100 CM RECEIVED TELEPHONE CALL TODAY REGARDING LETTER SENT FROM [facility] TO HOLD PATIENT BED AT [facility] PAYMENT WOULD BE REQUIRED STARTING Tuesday01/22/18. CM ADVISED I COULD NOT ADDRESS THE ISSUE. THE POA WOULD NEED TO CALL AND SPEAK WITH SOMEONE AT [facility]. SHE SAID THEY HAD RECEIVED A TELEPHONE CALL ASKING IF THEY WANTED THE BED HELD. THEY WERE NOT INFORMED AT THE TIME THAT PAYMENT WOULD BE REQUIRED. CM ENCOURAGED CONTACT WITH ADMINISTRATIVE STAFF AT THE FACILITY TO CLARIFY. DCP- Discharge Planning Updated by [email or web address]: Saba Burnham on 01/17/18 5:[address] Patient Name: HENRIQUE CLAY Admission Status: ER Accout number: [id number] Admission Date: 01-17-2018 : 1935 Admission Diagnosis: Attending: ISABELLE SANCHEZ Current LOS: 1 Anticipated DC Date: 01-21-2018 Planned Disposition: Nursing Facility [facility] Primary Insurance: MEDICARE A & B Discharge Planning Comments: CM met with patient to complete initial dc planning assessment. CM educated patient on the CM role and verbal consent given by patient to complete assessment. Patient lives at [facility]. At discharge patient plans to return to [facility] and feels this is a safe discharge. Patient denied known discharge needs at this time. CM will continue to follow and will assist as needed with dc plans/needs. See below for more assessment information. Silviculture Teacher: Saba Burnham RN, [facility] DCPIA - Discharge Planning Initial Assessment Updated by [email or web address]: Saba Burnham on 01/17/18 6:20 pm * Is the patient Alert and Oriented? Yes * How many steps to enter\exit or inside your home? None * PCP Senior Care physician * Pharmacy [facility] pharmacy * Preadmission Environment [facility] * Facility Name [facility] * ADLs Partial Dependent * Partial ADLs (Assistance needed) Ambulation Bathing Dressing Medication Management Toileting Transfers * Equipment Rolling Walker Wheelchair * List name and contact numbers for known caregivers / representatives who currently or will assist patient after discharge: Radha esquivel - [phone] * Verbal permission to speak to the caregivers and representatives has been obtained from the patient. Yes * Community resources currently utilized None * Additional services required to return to the preadmission environment? No * Can the patient safely return to the preadmission environment? Yes * Has this patient been hospitalized within the prior 30 days at any hospital? No Last DP export: 01/25/18 11:21 Patient Name: HENRIQUE CLAY Page 25871 at 1649 All edits/amendments must be made on the electronic document DICTATION DATE: 01/25/181648 [facility] UN[facility] NURSE: MATTHEW 01/25/181648 RPT#: [id number] DC DATE: STATUS: ADM IN [facility] [address] [place] [address] END OF REPORT
--- NOTE | ~2018-01-17 | MORECARE ---
CASE MANAGEMENT DISCHARGE SUMMARY PATIENT: HENRIQUE CLAY UNIT: [id number] ADM DATE: 01/17/18 AGE: 83 : 35 SEX: F ROOM/BED: D.E06 AUTHOR: GARRYDOC PHYSICIAN: REFERRING PHYSICIAN: ISABELLE SANCHEZ MD DATE OF SERVICE: 01/17/18 Discharge Plan Patient Name: HENRIQUE CLAY Facility: [facility]:[place] : 1935 Planned Disposition: Nursing Facility [facility] Cert Anticipated Discharge Date: 01/21/18 Discharge Date: Expected LOS: 4 Initial Reviewer: [email or web address] Initial Review Date: 01/17/2018 Generated: 01/17/18 7:27 pm DCP- Discharge Planning Updated by [email or web address]: Saba Burnham on 01/17/18 5:[address] Patient Name: HENRIQUE CLAY Admission Status: ER Accout number: [id number] Admission Date: 01-17-2018 : 1935 Admission Diagnosis: Attending: ISABELLE SANCHEZ Current LOS: 1 Anticipated DC Date: 01-21-2018 Planned Disposition: Nursing Facility [facility] Cert Primary Insurance: MEDICARE A & B Discharge Planning Comments: CM met with patient to complete initial dc planning assessment. CM educated patient on the CM role and verbal consent given by patient to complete assessment. Patient lives at [facility]. At discharge patient plans to return to [place] and feels this is a safe discharge. Patient denied known discharge needs at this time. CM will continue to follow and will assist as needed with dc plans/needs. See below for more assessment information. Timber Management Technician: Saba Burnham RN, [facility] DCPIA - Discharge Planning Initial Assessment Updated by [email or web address]: Saba Bunrham on 01/17/18 6:20 pm * Is the patient Alert and Oriented? Yes * How many steps to enter\exit or inside your home? None * PCP Senior Living physician * Pharmacy retirement pharmacy * Preadmission Environment [facility] * Facility Name [facility] * ADLs Partial Dependent * Partial ADLs (Assistance needed) Ambulation Bathing Dressing Medication Management Toileting Transfers * Equipment Rolling Walker Wheelchair * List name and contact numbers for known caregivers / representatives who currently or will assist patient after discharge: Radha esquivel - [phone] * Verbal permission to speak to the caregivers and representatives has been obtained from the patient. Yes * Community resources currently utilized None * Additional services required to return to the preadmission environment? No * Can the patient safely return to the preadmission environment? Yes * Has this patient been hospitalized within the prior 30 days at any hospital? No Patient Name: HENRIQUE CLAY Page 06199 at 1828 All edits/amendments must be made on the electronic document DICTATION DATE: 01/17/181826 MANAGER POWER: MATTHEW 01/17/181826 RPT#: [id number] [place] DATE: STATUS: ADM IN [address] [place] [address] END OF REPORT
--- NOTE | ~2018-01-17 | MORECARE ---
CASE MANAGEMENT DISCHARGE SUMMARY PATIENT: HENRIQUE CLAY UNIT: [id number] ADM DATE: 01/17/18 AGE: 83 : 35 SEX: F ROOM/BED: D.2310 AUTHOR: GARRY,DOC PHYSICIAN: REFERRING PHYSICIAN: ISABELLE SANCHEZ MD DATE OF SERVICE: 01/27/18 Discharge Plan Patient Name: HENRIQUE CLAY Facility: [facility]:[place] : 1935 Planned Disposition: Nursing Facility [facility] Cert Anticipated Discharge Date: 01/21/18 Discharge Date: 01/26/2018 Expected LOS: 4 Initial Reviewer: [email or web address] Initial Review Date: 01/17/2018 Generated: 01/27/18 8:55 pm Comments DCP- Discharge Planning Updated by [email or web address]: Yazmin Alex on 01/27/18 6:[address] Late Entry 01/26/18 1030 [facility] here for eval and sign clinicals. CM spoke with [facility] after Hospice completed eval. Nursing setting up ambulance transfer to [facility]. CM will continue to follow and assist as needed. DCP- Discharge Planning Updated by [email or web address]: Yazmin Alex on 01/25/18 3:[address] CM received notice to set up patient to return to [facility] with Hospice. CM called and spoke with Ayleen at [facility] [phone]. and faxed clinical [phone]. CM explained that MD had written order for Hospice with the same provider as patients roommate at facility. CM received call back from Ayleen around 2 pm that they are having to get high flow 02 delivered before they can accept patient back. Family spoke with nurse and stated that they would like [facility] for Hospice Care. CM awaiting to hear from [facility] as to when 02 is available for acceptance. CM will continue to follow and assist as needed with discharge planning/ needs. DCP- Discharge Planning Updated by [email or web address]: Ana Miranda on 01/21/18 4:[address] LATE ENTRY 1100 CM RECEIVED TELEPHONE CALL TODAY REGARDING LETTER SENT FROM [facility] TO HOLD PATIENT BED AT [facility] PAYMENT WOULD BE REQUIRED STARTING Tuesday01/22/18. CM ADVISED I COULD NOT ADDRESS THE ISSUE. THE POA WOULD NEED TO CALL AND SPEAK WITH SOMEONE AT [facility]. SHE SAID THEY HAD RECEIVED A TELEPHONE CALL ASKING IF THEY WANTED THE BED HELD. THEY WERE NOT INFORMED AT THE TIME THAT PAYMENT WOULD BE REQUIRED. CM ENCOURAGED CONTACT WITH ADMINISTRATIVE STAFF AT THE FACILITY TO CLARIFY. DCP- Discharge Planning Updated by [email or web address]: Saba Burnham on 01/17/18 5:[address] Patient Name: HENRIQUE CLAY Admission Status: ER Accout number: [id number] Admission Date: 01-17-2018 : 1935 Admission Diagnosis: Attending: ISABELLE SANCHEZ Current LOS: 1 Anticipated DC Date: 01-21-2018 Planned Disposition: Nursing Facility [facility] Primary Insurance: MEDICARE A & B Discharge Planning Comments: CM met with patient to complete initial dc planning assessment. CM educated patient on the CM role and verbal consent given by patient to complete assessment. Patient lives at [facility]. At discharge patient plans to return to [facility] and feels this is a safe discharge. Patient denied known discharge needs at this time. CM will continue to follow and will assist as needed with dc plans/needs. See below for more assessment information. Agriculture Scientist: Saba Burnham RN, [facility] DCPIA - Discharge Planning Initial Assessment Updated by [email or web address]: Sabahermelinda Burnham on 01/17/18 6:20 pm * Is the patient Alert and Oriented? Yes * How many steps to enter\exit or inside your home? None * PCP [facility] physician * Pharmacy [facility] pharmacy * Preadmission Environment [facility] * Facility Name [facility] * ADLs Partial Dependent * Partial ADLs (Assistance needed) Ambulation Bathing Dressing Medication Management Toileting Transfers * Equipment Rolling Walker Wheelchair * List name and contact numbers for known caregivers / representatives who currently or will assist patient after discharge: Radha Garibay Mohinder wrightjavier - [phone] * Verbal permission to speak to the caregivers and representatives has been obtained from the patient. Yes * Community resources currently utilized None * Additional services required to return to the preadmission environment? No * Can the patient safely return to the preadmission environment? Yes * Has this patient been hospitalized within the prior 30 days at any hospital? No Coverage Notice Reviewer: [email or web address] Mohinder Alex Notice Issued Date-Time: 01/25/2018 15:15 Notice Type: IM Discharge Notice Notice Delivered To: Patient Relationship to Patient: Self Warehouse Shipper Name: Delivery Method: HAND - Hand Delivered Carmen Days: Prior Verbal Notification: Recipient Understood Notice: Yes Recipient Signature: Yes Med Rec Note Co-signed by Attending: Coverage Notice Comment: Last DP export: 01/26/18 4:39 Patient Name: HENRIQUE CLAY Page 90928 at 1955 All edits/amendments must be made on the electronic document DICTATION DATE: 01/27/181953 MACHINE CLERICAL VERIFIER: MATTHEW 01/27/181953 RPT#: [id number] DC DATE:01/26/18 STATUS: DIS IN [facility] [address] [place] [address] END OF REPORT
--- NOTE | ~2018-01-17 | EC ---
PATIENT:HENRIQUE CLAY DATE OF SERVICE: 01/17/18 SEX: F MEDICAL RECORD: [id number] DATE OF : [birth year] LOCATION:D.MS [place] AGE OF PATIENT: 83 ADMISSION DATE: 01/17/18 REFERRING PHYSICIAN: INTERPRETING PHYSICIAN: JERE BRUNNER MD ECHOCARDIOGRAM REPORT ECHO CHARGES 4 ECHO COMPLETE Date: 01/19/18 CLINICAL DIAGNOSIS: ASSESS FOR PULMONARY HTN ECHOCARDIOGRAPHIC MEASUREMENTS (adult normal given) AC root (d.<3.7cm) 3.4 cm LV Septum d (<1.2 cm> 1.2 cm Valve Excursion 1.5 cm LV Septum (systole) 1.5 cm Left Atria (s.<4.0cm> 3.4 cm LVPW d(<1.2cm) 1.1 cm RV (d.<2.3cm) 5.1 cm LVPW (sytole) 1.5 cm LV diastole(<5.6CM) 5.0 cm MV E-F(>70mm/sec) cm LV systole 3.6 cm LVOT Diameter 1.9 cm MV exc.(>10mm) 2.0 cm Est.ejection fraction (50-75%) % DOPPLER: LVIT cm/sec A 81.0 cm/sec E 94.0 cm/sec LA cm/sec RVSP 69 mmHg LVOT 117 cm/sec AOP1/2T m/s Asc. Ao 140 cm/sec RVOT 58 cm/sec RA cm/sec PA 99 cm/sec AV Gradient Peak 7.89 mmHg AV Mean 4.43 mmHg AV Area 2.7 cm MV Gradient Peak 3.29 mmHg MV Mean 1.40 mmHg MV Area cm COMMENTS: Subsurface Augmentee Elint Operator: Isai MATUTE Fraud Representative: 2 Dr. Neil TAPE# PACS Pericardial Effusion N DATE OF SERVICE: 01/19/2018 PROCEDURE: Echocardiogram. FINDINGS: 1. Left ventricular chamber size is within normal limits. Left ventricular systolic function is normal. Overall ejection fraction estimated at 55%. 2. Left atrium is within normal limits at 3.4 cm. Right atrium and right ventricular chamber sizes are mildly dilated. 3. Valvular structures have normal structure and function. ECHOCARDIOGRAM REPORT [id number] HENRIQUE CLAY 4. Doppler interrogation reveals [id number] tricuspid regurgitation, no other valvular insufficiency or stenosis. Pulmonary systolic pressure is elevated estimated at 70 mmHg. 5. No evidence of pericardial effusion or left ventricular thrombus. TRANSINT:[id number] Voice Confirmation ID: [id number] DOCUMENT ID: [id number] JERE BRUNNER MD at 1059 CC: [id number] DICTATION DATE: 01/19/18 1250 PAPIER MACHE' MOLDER: 01/19/18 1323 ADM IN [place] [address] [place] [address]
[~2018-01-17 13:45] MED LIST changes: +MUCINEX600 MG PO; +TESSALON PERLE100 MG PO
[2018-01-17 14:30] VITALS: BP 119/56
[2018-01-17 14:37] LABS: BASOPHILS 0.2 % (0-2); EOSINOPHILS 0.3 % (0-7); HEMATOCRIT 47.2 % (36.0-48.0); HEMOGLOBIN 14.9 g/dL (12-16); IMMATURE GRANULOCYTES 0.4 % (0-5); LYMPHOCYTES 11.5 % (15-50); MCH 26.6 pg (26.0-34.0); MCHC 31.6 g/dL (31.0-37.0); MCV 84.1 fL (80.0-100.0); MEAN PLATELET VOLUME 10.3 fL (7.4-10.4); MONOCYTES 5.2 % (2-11); NEUTROPHILS 82.4 % (40-80); PLATELET COUNT 206 10x3/uL (130-400); RBC 5.61 10x6/uL (4.00-5.40); RDW 15.6 % (11.5-14.5); WBC 14.1 10x3/uL (4.8-10.8)
[2018-01-17 14:50] LABS: ALBUMIN 3.1 g/dL (3.4-5.0); ALKALINE PHOSPHATASE 55 U/L (46-116); ALT (SGPT) 13 U/L (10-68); BILIRUBIN - TOTAL 0.46 mg/dL (0.2-1.3); CALC OSMOLALITY 274 mosm/kg (275-300); CALCIUM 8.6 mg/dL (8.5-10.1); CARBON DIOXIDE 24.3 mmol/L (21.0-32.0); CHLORIDE - SERUM 101 mmol/L (98-107); CREATININE - SERUM 0.7 mg/dL (0.6-1.3); GLUCOSE 155 mg/dL (74-106); POTASSIUM - SERUM 4.1 mmol/L (3.5-5.1); PROTEIN - SERUM 8.1 g/dL (6.4-8.2); SODIUM 137 mmol/L (136-145); UREA NITROGEN 8 mg/dL (7-18); eGFR NON AFRICAN AMERICAN 85 mL/min (90-120)
[2018-01-17 15:01] LABS: CKMB 0.8 U/L (0.0-3.6); CREATINE KINASE 39 UL (21-215); PRO BNP 2852 pg/mL (0-450); TROPONIN-I < 0.017 ng/mL (0.000-0.060)
[2018-01-17 15:31] VITALS: BP 123/61
[2018-01-17 16:34] LABS: APPEARANCE TURBID (CLEAR); COLOR YELLOW (YELLOW); NITRITE POSITIVE (NEGATIVE); PROTEIN 1+ mg/dL (NEGATIVE); SPECIFIC GRAVITY 1.015 (1.005-1.020)
[2018-01-17 16:35] LABS: BILIRUBIN NEGATIVE (NEGATIVE); GLUCOSE NEGATIVE (NEGATIVE); KETONE NEGATIVE (NEGATIVE); UROBILINOGEN NORMAL (NORMAL)
[2018-01-17 16:36] LABS: BACTERIA MANY /hpf (NONE SEEN); EPITHELIAL CELLS OCC /hpf (0-5); RED CELLS - URINE 0-5 /hpf (0-5); WHITE CELLS - URINE >50 /hpf (0-5)
[2018-01-17 17:00] VITALS: BP 157/83
[2018-01-17 18:00] VITALS: BP 141/83
[2018-01-17 19:00] VITALS: BP 148/86
[2018-01-17] MEDS ORDERED: ZOLOFT25 MG PO (19:44)
[2018-01-17] MEDS ORDERED: CYCLOBENZAPRINE5 MG PO (19:44)
[2018-01-18] VITALS (7 sets, daily range): BP systolic 111–165; BP diastolic 58–99; Ht 170.2 cm; Wt 94.2 kg
[2018-01-18 06:09] LABS: BASOPHILS 0.2 % (0-2); EOSINOPHILS 1.2 % (0-7); HEMATOCRIT 46.7 % (36.0-48.0); HEMOGLOBIN 14.4 g/dL (12-16); IMMATURE GRANULOCYTES 0.2 % (0-5); LYMPHOCYTES 14.4 % (15-50); MCH 26.3 pg (26.0-34.0); MCHC 30.8 g/dL (31.0-37.0); MCV 85.2 fL (80.0-100.0); MEAN PLATELET VOLUME 10.4 fL (7.4-10.4); MONOCYTES 10.3 % (2-11); NEUTROPHILS 73.7 % (40-80); PLATELET COUNT 208 10x3/uL (130-400); RBC 5.48 10x6/uL (4.00-5.40); RDW 15.6 % (11.5-14.5)
[2018-01-18 06:20] LABS: WBC 9.5 10x3/uL (4.8-10.8)
[2018-01-18 06:24] LABS: ALBUMIN 2.8 g/dL (3.4-5.0); BILIRUBIN - TOTAL 0.37 mg/dL (0.2-1.3); CALCIUM 9.3 mg/dL (8.5-10.1); CREATININE - SERUM 0.8 mg/dL (0.6-1.3); POTASSIUM - SERUM 4.3 mmol/L (3.5-5.1); PROTEIN - SERUM 8.3 g/dL (6.4-8.2)
[2018-01-18 06:30] LABS: CARBON DIOXIDE 31.3 mmol/L (21.0-32.0)
[2018-01-18 15:55] LABS: INR 1.27 (0.85-1.17); PROTIME 15.4 SECONDS (11.6-15.0)
[2018-01-19 04:57] LABS: BASOPHILS 0.3 % (0-2); EOSINOPHILS 2.4 % (0-7); HEMATOCRIT 43.5 % (36.0-48.0); HEMOGLOBIN 13.2 g/dL (12-16); IMMATURE GRANULOCYTES 0.3 % (0-5); LYMPHOCYTES 20.6 % (15-50); MCHC 30.3 g/dL (31.0-37.0); MCV 85.6 fL (80.0-100.0); MONOCYTES 9.8 % (2-11); NEUTROPHILS 66.6 % (40-80); PLATELET COUNT 186 10x3/uL (130-400); RBC 5.08 10x6/uL (4.00-5.40); RDW 15.4 % (11.5-14.5); WBC 6.6 10x3/uL (4.8-10.8)
[2018-01-19 05:13] LABS: ANION GAP 11.9 mmol/L (8-16); CALCIUM 8.6 mg/dL (8.5-10.1); CARBON DIOXIDE 29.8 mmol/L (21.0-32.0); CREATININE - SERUM 0.9 mg/dL (0.6-1.3); POTASSIUM - SERUM 3.7 mmol/L (3.5-5.1)
[2018-01-19 05:19] VITALS: BP 115/65
[2018-01-19 09:05] VITALS: BP 115/51
[2018-01-19 16:19] VITALS: BP 117/62
[2018-01-19 20:00] VITALS: BP 122/66
[2018-01-20 04:00] VITALS: BP 126/60
[2018-01-20 08:18] VITALS: BP 118/64
[2018-01-20 10:43] LABS: BASOPHILS 0.3 % (0-2); EOSINOPHILS 2.9 % (0-7); HEMATOCRIT 45.1 % (36.0-48.0); HEMOGLOBIN 13.4 g/dL (12-16); IMMATURE GRANULOCYTES 0.1 % (0-5); LYMPHOCYTES 12.5 % (15-50); MCH 26.2 pg (26.0-34.0); MCHC 29.7 g/dL (31.0-37.0); MEAN PLATELET VOLUME 9.8 fL (7.4-10.4); MONOCYTES 9.2 % (2-11); PLATELET COUNT 183 10x3/uL (130-400); RBC 5.11 10x6/uL (4.00-5.40); RDW 15.5 % (11.5-14.5); WBC 7.1 10x3/uL (4.8-10.8)
[2018-01-20 10:50] LABS: MCV 88.3 fL (80.0-100.0)
[2018-01-20 10:53] LABS: ANION GAP 8.7 mmol/L (8-16); CALCIUM 8.5 mg/dL (8.5-10.1); CARBON DIOXIDE 31.5 mmol/L (21.0-32.0); CREATININE - SERUM 0.8 mg/dL (0.6-1.3); POTASSIUM - SERUM 4.2 mmol/L (3.5-5.1)
[2018-01-20 12:47] VITALS: BP 141/49
[2018-01-20 16:57] VITALS: BP 131/56
[2018-01-20 21:16] VITALS: BP 110/64
[2018-01-21] VITALS (10 sets, daily range): BP systolic 96–148; BP diastolic 46–83
[2018-01-21 06:15] LABS: BASOPHILS 0.3 % (0-2); EOSINOPHILS 3.3 % (0-7); HEMATOCRIT 41.5 % (36.0-48.0); HEMOGLOBIN 12.3 g/dL (12-16); IMMATURE GRANULOCYTES 0.2 % (0-5); LYMPHOCYTES 21.2 % (15-50); MCH 25.9 pg (26.0-34.0); MCHC 29.6 g/dL (31.0-37.0); MCV 87.4 fL (80.0-100.0); MEAN PLATELET VOLUME 10.6 fL (7.4-10.4); MONOCYTES 11.2 % (2-11); NEUTROPHILS 63.8 % (40-80); PLATELET COUNT 205 10x3/uL (130-400); RBC 4.75 10x6/uL (4.00-5.40); RDW 15.3 % (11.5-14.5); WBC 6.1 10x3/uL (4.8-10.8)
[2018-01-21 06:33] LABS: CALC OSMOLALITY 273 mosm/kg (275-300); CALCIUM 8.7 mg/dL (8.5-10.1); CARBON DIOXIDE 30.5 mmol/L (21.0-32.0); CHLORIDE - SERUM 103 mmol/L (98-107); CREATININE - SERUM 0.7 mg/dL (0.6-1.3); GLUCOSE 96 mg/dL (74-106); POTASSIUM - SERUM 4.1 mmol/L (3.5-5.1); SODIUM 138 mmol/L (136-145); eGFR NON AFRICAN AMERICAN 85 mL/min (90-120)
[2018-01-21 06:36] LABS: UREA NITROGEN 8 mg/dL (7-18)
[2018-01-21 17:15] LABS: BASOPHILS 0.2 % (0-2); EOSINOPHILS 1.4 % (0-7); HEMATOCRIT 41.8 % (36.0-48.0); HEMOGLOBIN 12.6 g/dL (12-16); IMMATURE GRANULOCYTES 0.2 % (0-5); MCHC 30.1 g/dL (31.0-37.0); MCV 86.4 fL (80.0-100.0); MONOCYTES 10.2 % (2-11); PLATELET COUNT 200 10x3/uL (130-400); RBC 4.84 10x6/uL (4.00-5.40); WBC 9.4 10x3/uL (4.8-10.8)
[2018-01-21 17:23] LABS: CALC OSMOLALITY 269 mosm/kg (275-300); CALCIUM 8.6 mg/dL (8.5-10.1); CARBON DIOXIDE 31.3 mmol/L (21.0-32.0); CHLORIDE - SERUM 100 mmol/L (98-107); CREATININE - SERUM 0.7 mg/dL (0.6-1.3); GLUCOSE 114 mg/dL (74-106); POTASSIUM - SERUM 4.3 mmol/L (3.5-5.1); SODIUM 135 mmol/L (136-145); UREA NITROGEN 9 mg/dL (7-18); eGFR NON AFRICAN AMERICAN 85 mL/min (90-120)
[2018-01-22] VITALS (22 sets, daily range): BP systolic 100–139; BP diastolic 43–97
[2018-01-22 04:19] LABS: BASOPHILS 0 % (0-2); EOSINOPHILS 0 % (0-7); HEMATOCRIT 41.4 % (36.0-48.0); HEMOGLOBIN 12.6 g/dL (12-16); IMMATURE GRANULOCYTES 0.3 % (0-5); LYMPHOCYTES 10.6 % (15-50); MCH 25.9 pg (26.0-34.0); MCHC 30.4 g/dL (31.0-37.0); MCV 85.2 fL (80.0-100.0); MEAN PLATELET VOLUME 10.2 fL (7.4-10.4); MONOCYTES 2.5 % (2-11); NEUTROPHILS 86.6 % (40-80); PLATELET COUNT 199 10x3/uL (130-400); RBC 4.86 10x6/uL (4.00-5.40); WBC 7.1 10x3/uL (4.8-10.8)
[2018-01-22 04:35] LABS: ALBUMIN 2.5 g/dL (3.4-5.0); ALKALINE PHOSPHATASE 44 U/L (46-116); ALT (SGPT) 12 U/L (10-68); CALC OSMOLALITY 276 mosm/kg (275-300); CALCIUM 8.8 mg/dL (8.5-10.1); CARBON DIOXIDE 32.7 mmol/L (21.0-32.0); CHLORIDE - SERUM 100 mmol/L (98-107); CREATININE - SERUM 0.6 mg/dL (0.6-1.3); PHOSPHOROUS 3.1 mg/dL (2.5-4.9); PRO BNP 2031 pg/mL (0-450); PROTEIN - SERUM 7.5 g/dL (6.4-8.2); SODIUM 137 mmol/L (136-145); UREA NITROGEN 10 mg/dL (7-18); eGFR NON AFRICAN AMERICAN > 90 mL/min (90-120)
[2018-01-22 04:36] LABS: GLUCOSE 162 mg/dL (74-106)
[2018-01-23] VITALS (24 sets, daily range): BP systolic 95–128; BP diastolic 51–84
[2018-01-23 04:22] LABS: BASOPHILS 0 % (0-2); EOSINOPHILS 0.2 % (0-7); HEMOGLOBIN 11.8 g/dL (12-16); IMMATURE GRANULOCYTES 0.2 % (0-5); LYMPHOCYTES 16.9 % (15-50); MCH 25.9 pg (26.0-34.0); MCHC 30.3 g/dL (31.0-37.0); MCV 85.5 fL (80.0-100.0); MONOCYTES 10.7 % (2-11); PLATELET COUNT 210 10x3/uL (130-400); RBC 4.56 10x6/uL (4.00-5.40); RDW 14.8 % (11.5-14.5); WBC 6.4 10x3/uL (4.8-10.8)
[2018-01-23 04:33] LABS: ALBUMIN 2.4 g/dL (3.4-5.0); ALKALINE PHOSPHATASE 38 U/L (46-116); ALT (SGPT) 11 U/L (10-68); BILIRUBIN - TOTAL 0.23 mg/dL (0.2-1.3); CALC OSMOLALITY 276 mosm/kg (275-300); CALCIUM 8.7 mg/dL (8.5-10.1); CARBON DIOXIDE 37.4 mmol/L (21.0-32.0); CHLORIDE - SERUM 100 mmol/L (98-107); CREATININE - SERUM 0.5 mg/dL (0.6-1.3); MAGNESIUM - SERUM 2.2 mg/dL (1.8-2.4); POTASSIUM - SERUM 4.2 mmol/L (3.5-5.1); PROTEIN - SERUM 7.2 g/dL (6.4-8.2); SODIUM 138 mmol/L (136-145); UREA NITROGEN 12 mg/dL (7-18); eGFR NON AFRICAN AMERICAN > 90 mL/min (90-120)
[2018-01-23 04:34] LABS: GLUCOSE 111 mg/dL (74-106); PHOSPHOROUS 2.3 mg/dL (2.5-4.9)
[2018-01-23 07:21] LABS: APTT 44.2 SECONDS (22.8-39.4); INR 1.1 (0.85-1.17); PROTIME 13.8 SECONDS (11.6-15.0)
[2018-01-23 14:18] LABS: ANA REFLEX - DIRECT Negative (Negative)
[2018-01-24] VITALS (24 sets, daily range): BP systolic 106–149; BP diastolic 60–99
[2018-01-24 04:09] LABS: BASOPHILS 0 % (0-2); EOSINOPHILS 0 % (0-7); HEMATOCRIT 40.3 % (36.0-48.0); IMMATURE GRANULOCYTES 0.2 % (0-5); LYMPHOCYTES 11.2 % (15-50); MCH 25.8 pg (26.0-34.0); MCHC 29.8 g/dL (31.0-37.0); MCV 86.7 fL (80.0-100.0); MEAN PLATELET VOLUME 10.3 fL (7.4-10.4); MONOCYTES 4.5 % (2-11); NEUTROPHILS 84.1 % (40-80); PLATELET COUNT 242 10x3/uL (130-400); RBC 4.65 10x6/uL (4.00-5.40); RDW 14.9 % (11.5-14.5); WBC 5.1 10x3/uL (4.8-10.8)
[2018-01-24 04:18] LABS: CALC OSMOLALITY 278 mosm/kg (275-300); CALCIUM 8.3 mg/dL (8.5-10.1); CARBON DIOXIDE 37.2 mmol/L (21.0-32.0); CHLORIDE - SERUM 100 mmol/L (98-107); GLUCOSE 125 mg/dL (74-106); POTASSIUM - SERUM 4.1 mmol/L (3.5-5.1); SODIUM 140 mmol/L (136-145); UREA NITROGEN 11 mg/dL (7-18); eGFR NON AFRICAN AMERICAN 85 mL/min (90-120)
[2018-01-24 04:36] LABS: CREATININE - SERUM 0.7 mg/dL (0.6-1.3)
[2018-01-24 16:15] LABS: ANCA - ANTIMYELOPEROXIDASE 10.2 U/mL (0.0-9.0); ANCA - ANTIPROTEINASE 3 12.3 U/mL (0.0-3.5); ANCA - ATYPICAL <1:20 titer (Neg:<1:20); ANCA - CYTOPLASMIC <1:20 titer (Neg:<1:20); ANCA - PERINUCLEAR <1:20 titer (Neg:<1:20)
[2018-01-25] VITALS (17 sets, daily range): BP systolic 119–173; BP diastolic 66–125
[2018-01-25 04:30] LABS: BASOPHILS 0.3 % (0-2); EOSINOPHILS 0.3 % (0-7); HEMATOCRIT 42.8 % (36.0-48.0); HEMOGLOBIN 12.8 g/dL (12-16); IMMATURE GRANULOCYTES 0.3 % (0-5); LYMPHOCYTES 18.9 % (15-50); MCH 25.6 pg (26.0-34.0); MCHC 29.9 g/dL (31.0-37.0); MCV 85.6 fL (80.0-100.0); MEAN PLATELET VOLUME 9.7 fL (7.4-10.4); NEUTROPHILS 75.2 % (40-80); PLATELET COUNT 256 10x3/uL (130-400); RDW 14.9 % (11.5-14.5)
[2018-01-25 04:38] LABS: WBC 3.8 10x3/uL (4.8-10.8)
[2018-01-25 04:56] LABS: CALC OSMOLALITY 279 mosm/kg (275-300); CALCIUM 8.5 mg/dL (8.5-10.1); CARBON DIOXIDE 35.8 mmol/L (21.0-32.0); CHLORIDE - SERUM 100 mmol/L (98-107); CREATININE - SERUM 0.6 mg/dL (0.6-1.3); GLUCOSE 130 mg/dL (74-106); MAGNESIUM - SERUM 2.1 mg/dL (1.8-2.4); POTASSIUM - SERUM 3.9 mmol/L (3.5-5.1); SODIUM 139 mmol/L (136-145); UREA NITROGEN 12 mg/dL (7-18); eGFR NON AFRICAN AMERICAN > 90 mL/min (90-120)
[2018-01-26 03:00] VITALS: BP 152/88
[2018-01-26 07:00] VITALS: BP 156/94
[2018-01-26 11:00] VITALS: BP 131/74
== END 2018-01-26 15:30 | disposition home health service (06) | DRG 180 ==
LOC: D.ER 13:45 → D.ICU 17:51 → D.EDHOLD 17:51 → D.MS 17:51 → D.ICU 01-21 17:51
PROVIDERS: Family Medicine; Internal Medicine Nephrology; Internal Medicine Pulmonary Disease; Radiology Diagnostic Radiology
DX: C34.32 Malignant neoplasm of lower lobe, left bronchus or lung (principal); J18.9 Pneumonia, unspecified organism; J44.0 Chronic obstructive pulmonary disease with (acute) lower respiratory infection; N39.0 Urinary tract infection, site not specified; J44.1 Chronic obstructive pulmonary disease with (acute) exacerbation; E11.9 Type 2 diabetes mellitus without complications; F03.90 Unspecified dementia, unspecified severity, without behavioral disturbance, psychotic disturbance, mood disturbance, and anxiety; L89.151 Pressure ulcer of sacral region, stage 1; E11.40 Type 2 diabetes mellitus with diabetic neuropathy, unspecified; F41.8 Other specified anxiety disorders